=== PATIENT | male | born 1975 | race Caucasian/White ===

== ENCOUNTER 2018-02-16 21:48 | Inpatient (IN) ==
[2018-02-17] MEDS ORDERED: 0.9 % Sodium Chloride 1,000 ML IVC ONE (00:21)
--- NOTE | 2018-02-17 00:21 | Event Note ---
Date of Encounter: 02/17/18 Time of Encounter: 00:11 Patient was seen and examined. I agree with the Resident Physician's note as written. Briefly, patient is 42 M PMH chronic lymphedema who used to follow up in a lymphedema clinic but stopped, DM diet controlled who presented to [facility] with left LE swelling, tenderness and fever. This started at 11 am. Patient recently had a dog scratch his left lower ext. 3 weeks ago he had celulitis on the right lower ext treated with bactrim with complete resolution. At [facility], he was hypotensive, tachycardic. labs showed leukocytosis, lactic acidosis which resolved with IVF. Phosphorous was <1.0, mag 1.5, k 3.6. He was given IV fluids , vanco/zosyn and sent here. Patient is hypotensive here with BP 92/63 and remains tachycardic. He is afebrile but diaphoretic A/O x3 Tachycardic, S1, S2, no m/r/g CTAB Obese, NT, ND, +BS Chronic lymphedema of b/l LE extremities. Left LE with erythema and tenderness to palpation from the ankles to the knee. 2+ DP Nonfocal neuro exam Will admit Will bolus 1 L NS stat Maintenance fluids after that with NS at 125 cc/hr vanco/zosyn apolinar the area CT LE if fails to improve Left LE doppler to rule out DVT f/u on blood cutltures repeat labs in am Give potassium phos IV
[2018-02-17] MEDS ORDERED: Naloxone 0.4 MG/ML INJ IVP PRN (00:31)
--- NOTE | 2018-02-17 00:31 | Internal Med History&Physical ---
Date of Encounter: 02/17/18 Time of Encounter: 12:30 Internal Medicine - H&P: HPI Chief complaint: Swelling of left leg Admitted From: Intrahospital Transfer Plans for Post Hospital Care: Home History of present illness: Mr. Overton is a 42 year old male diabetes chronic lymphedema, recurrent cellulitis, diet-controlled, gastric bypass 6 years ago presents to [facility] with left lower extremity swelling for 1 day. The patient reports that the swelling started this a.m. and he became febrile and had chills. He reports that he had a dog scratch on his left lower extremity 3 weeks ago, but swelling and fever/ chills did not start until today. Aleve helps with the fever, but lower extremity pain remains 6 out of 10. Patient is a chronic smoker of 25+ pack years, denies alcohol or illicit drug use. He also admits to a dry cough without sputum 2 days. reports that his dog has been tested for rabies. Admits to bleeding from left lower extremity wounds. Denies purulent discharge. Has additional right lower extremity wounds from several weeks ago as he was trying to get out of his truck. Denies antibiotic use this year prior to this visit. Although the patient informs me that he has recurrent lower extremity cellulitis , his last admission for cellulitis was 6+ years ago. He denies visual changes , chest pain, nausea, vomiting, diarrhea, abdominal pain, constipation, symptoms. Cannot recall any further wounds the size mentioned above. Past Med Surg Social Fam HX - Past Medical History Medical history: diabetes, hypertension, other Psychiatric history: no psych history - Social History Smoking Status: Current every day smoker Smokeless Tobacco Status: No Alcohol use: occasionally Drug use: none Internal Medicine - H&P: Meds Albuterol Sulfate [Albuterol Inhaler] 2 puff IH Q6HR PRN #1 [email or web address] 10/16/16 [Rx] Cholecalciferol (D-3) [Vitamin D] 1,000 unit PO DAILY 10/16/16 [History] Furosemide [Lasix] 40 mg PO DAILY 10/16/16 [History] Gabapentin [Neurontin] 300 mg PO TID 10/16/16 [History] HydrOXYzine [HydrOXYzine] 50 mg PO QID PRN 10/16/16 [History] Ibuprofen [Motrin] 800 mg PO TID 10/16/16 [History] Paroxetine HCl [Paxil] 20 mg PO DAILY 10/16/16 [History] Potassium Chloride [K-Tab ER] 10 meq PO BID 10/16/16 [History] 3 Allergy/AdvReac Type Severity Reaction Status Date / Time No Known Allergies Allergy Verified 02/16/18 17:34 All Systems PM: A 10-system review of systems was performed and is negative for pertinent findings except as documented above in the HPI. - Constitutional Constitutional: chills, fever(s), no night sweats - EENT Eyes: no change in vision, no discharge, no pain, no photophobia Ears: no ear discharge, no ear pain, no tinnitus Nose, mouth and throat: no dysphagia, no nasal discharge, no neck pain, no sore throat - Cardiovascular Cardiovascular ROS IM: no chest pain, no diaphoresis, no dyspnea, no lightheadedness, no palpitations, no syncope - Respiratory Respiratory: cough, no dyspnea, no wheezing, no excessive phlegm production - Gastrointestinal Gastrointestinal: no abdominal pain, no diarrhea, no hematemesis, no hematochezia, no melena, no nausea, no vomiting - Musculoskeletal Musculoskeletal ROS IM: no numbness, no tingling - Integumentary Integumentary IM: non-healing lesions, no rash, no unusual bruising - Neurological Neurological ROS: no confusion, no convulsions, no focal weakness, no numbness, no tingling, no tremor(s) - Hematologic/Lymphatic Hematologic/Lymphatic: no easy bruising - Constitutional Vitals: Temp Pulse Resp BP Pulse Ox 98.4 F 112 14 92/63 94 02/16/18 23:51 02/16/18 23:51 02/16/18 23:51 02/16/18 23:51 02/16/18 23:51 General appearance: Present: A&O X 3, morbidly obese, no acute distress, answers questions appropriately - Head Head exam: Present: atraumatic, normocephalic - Eye Eye exam: Present: EOMI, conjuntiva pink, sclera anicteric - Neck Neck exam general surgery: Present: supple, trachea midline. Absent: lymphadenopathy - Respiratory Respiratory exam: Present: CTAB. Absent: accessory muscle use, rales, rhonchi, wheezes - Cardiovascular Cardiovascular exam: Present: +S1, +S2, tachycardia. Absent: diastolic murmur, gallop, rubs, systolic murmur - GI/Abdominal GI/Abdominal exam: Present: normal bowel sounds, soft, no peritoneal signs. Absent: distended, tenderness - Extremities Exam Extremities exam: Present: pedal edema, warm, radial pulses palpable and symmetrical. Absent: calf tenderness, cyanotic Additional comments: Left LE swelling approximately 30cm, no discharge of bleed, ulcerations on left lower extremity calf. Healing ulcerations on right lower extremity. - Neurological Exam Neurological exam: Present: CN II-XII intact, oriented X3, no focal deficits. Absent: pronater drift, facial droop, speech deficit - Skin Skin exam: Present: dry, intact Internal Med - H&P Results - Labs CBC & Chem 7: 02/17/18 01:25 02/17/18 01:25 - Assessment and plan (1) Sepsis Current Visit: Yes Status: Acute Assessment and plan: Pulse 100+, leukocytosis, extensive cellulitis of left lower extremity. Sepsis likely secondary to left lower extremity cellulitis Patient also reports shortness of breath with dry cough Pending chest x-ray Start vancomycin and Zosyn, pending blood cultures. De-escalate as appropriate. Start IV fluids Left LE Doppler to rule out PE in the setting of tachycardia, SOB, sedentary, pending Continous cardiac monitoring and pulse ox. Qualifiers: Sepsis type: sepsis due to unspecified organism Qualified Code(s): A41.9 - Sepsis, unspecified organism (2) Cellulitis Current Visit: No Status: Acute Assessment and plan: marked area of cellulitis. Start antibiotics IVF treat per above Qualifiers: Qualified Code(s): L03.116 - Cellulitis of left lower limb (3) DVT prophylaxis Current Visit: Yes Status: Acute Assessment and plan: SubQ heparin (4) Hypophosphatasia Current Visit: Yes Status: Acute Assessment and plan: Potassium phosphate infusion recheck am labs (5) Hypomagnesemia Current Visit: Yes Status: Acute Assessment and plan: Magnesium sulfate. Recheck with AM labs (6) Diabetes Current Visit: Yes Status: Acute Assessment and plan: Patient reports diabetes is diet-controlled after his gastric bypass 6 years ago. Recheck A1c. Qualifiers: Qualified Code(s): E11.9 - Type 2 diabetes mellitus without complications - Time Spent With Patient Total time spent is greater than 50% in coordination of care (as documented) at patient's floor/unit and/or counseling patient: Greater than 35 minutes
[2018-02-17] MEDS ORDERED: Potassium Phosphate 44 MEQ in 0.9 % Sodium Chloride 250 ML IVPB ONE (00:51)
[2018-02-17] MEDS ORDERED: Vancomycin (wt based) 1,000 MG VIAL IVPB SCH (01:00)
[2018-02-17] MEDS: 0.9 % Sodium Chloride 1,000 ML IVC SCH ×2 (01:52→23:29)
[2018-02-17 01:53] LABS: Hematocrit 37.3 % (37.5-50.1); Hemoglobin 12.5 g/dL (12.9-16.9); Mean Corpuscular HGB Conc 33.5 g/dL (31.6-35.5); Mean Corpuscular Hemoglobin 29.6 pg (28.0-33.3); Mean Corpuscular Volume 88.4 fL (83.0-100.0); Mean Platelet Volume 11.1 fL (9.4-12.4); Platelet Count 138 K/mcL (140-400); Red Blood Count 4.22 M/mcL (4.19-5.50); Red Cell Distribution Width 14.4 % (11.5-14.5)
[2018-02-17] MEDS ORDERED: Dextrose Gel 15 GM/37.5 ML TUBE PO PRN ×2 (02:07)
[2018-02-17] MEDS ORDERED: D5% in Water 1,000 ML IVC PRN (02:07)
[2018-02-17] MEDS ORDERED: *HR* Dextrose 50 % in Water (Syg) 50 ML SYRINGE IVP PRN (02:07)
[2018-02-17 02:10] LABS: Lymphocytes # 0.2 K/mcL (0.6-4.6)
[2018-02-17 02:14] LABS: BUN/Creatinine Ratio 18 (6-26); Blood Urea Nitrogen 15 mg/dL (6-20); Calcium 7.8 mg/dL (8.6-10.3); Carbon Dioxide 22 mEq/L (23-29); Chloride 109 mEq/L (98-107); Chol/HDL Ratio 2.2 (0-4.9); Cholesterol 69 mg/dL (< 200); Glucose 97 mg/dL (70-105); HDL Cholesterol 31 mg/dL (40-59); LDL Cholesterol,Calculated 30 mg/dL (0-99); Osmolality,Calculated 285 (280-300); Potassium 3.9 mEq/L (3.5-5.1); Sodium 137 mEq/L (136-145); Triglycerides 40 mg/dL (< 150); eGFR For African Americans > 60 (> 60); eGFR For Non-African Americans > 60 (> 60)
[2018-02-17 02:31] LABS: Magnesium 1.7 mg/dL (1.6-2.6); Phosphorous 3.1 mg/dL (2.7-4.5)
[2018-02-17 02:39] LABS: Monocytes # 0.2 K/mcL (0.0-1.3); Neutrophils # 21.5 K/mcL (1.6-8.9); Platelet Estimate Slight Decrease (Normal)
[2018-02-17 02:40] LABS: Toxic Granulation Present (Not Present)
[2018-02-17] MEDS: *HR* Heparin 5,000 UNIT/ML VIAL SQ SCH ×2 (05:57→17:06)
[2018-02-17] MEDS: Insulin LISPRO 300 UNITS/3 ML VIAL SQ SCH ×4 (08:12→22:01)
[2018-02-17] MEDS: Piperacillin/Tazobactam 3.375 GM in 0.9 % Sodium Chloride Mini Bag 100 ML IVPB SCH ×3 (08:29→23:28)
[2018-02-17] MEDS: Acetaminophen 325 MG TABLET PO PRN (09:15)
[2018-02-17] MEDS: *HR* HYDROcodone/Acet 7.5/325 mg TABLET PO PRN (10:56)
[2018-02-17] MEDS: *HR* Nalbuphine 10 MG/ML AMPUL IV PRN ×2 (17:13→22:01)
[2018-02-17] MEDS ORDERED: 0.9 % Sodium Chloride 1,000 ML ONE (22:12)
[2018-02-18] MEDS: *HR* Heparin 5,000 UNIT/ML VIAL SQ SCH ×2 (05:50→18:24)
[2018-02-18] MEDS: *HR* Nalbuphine 10 MG/ML AMPUL IV PRN ×3 (05:50→18:46)
[2018-02-18] MEDS: Insulin LISPRO 300 UNITS/3 ML VIAL SQ SCH ×4 (08:15→22:09)
[2018-02-18] MEDS: Piperacillin/Tazobactam 3.375 GM in 0.9 % Sodium Chloride Mini Bag 100 ML IVPB SCH ×2 (08:25→15:15)
--- NOTE | 2018-02-18 22:00 | Internal Med Progress Note ---
Date of Encounter: 02/18/18 Time of Encounter: 17:00 - Assessment and plan (1) Sepsis, unspecified organism Status: Acute Assessment and plan: His sepsis is due to cellulitis of of left lower leg. Lactic acid is 0.7. Will keep him on IV vancomycin and IV Zosyn. Qualifiers: Sepsis type: sepsis due to unspecified organism Qualified Code(s): A41.9 - Sepsis, unspecified organism (2) Cellulitis of left leg Status: Acute Assessment and plan: He has chronic lymphedema. He had similar cellulitis several months ago. Treatment with IV vancomycin and IV Zosyn. (3) Chronic acquired lymphedema Status: Acute Assessment and plan: Chronic problem. It is severe in intensity. (4) T2DM (type 2 diabetes mellitus) Status: Acute Assessment and plan: Will continue to diabetic diet. Will continue prn Humalog. Qualifiers: Diabetes mellitus retirement insulin use: without termite control servicer use Diabetes mellitus complication status: without complication Qualified Code(s): E11.9 - Type 2 diabetes mellitus without complications - Time Spent With Patient Total time spent is greater than 50% in coordination of care (as documented) at patient's floor/unit and/or counseling patient: 25 - 35 minutes - Subjective Interval history: The patient complains of pain in the area of left lower leg. He gets prn IV nubain to control it. Denies chest pain. Denies difficulty breathing. Denies coughing and wheezing. - Constitutional Vitals: Temp Pulse Resp BP Pulse Ox 99.1 F 85 16 119/56 98 02/18/18 18:48 02/18/18 18:48 02/18/18 18:48 02/18/18 18:48 02/18/18 18:48 General appearance: Present: A&O X 3, morbidly obese, no acute distress, answers questions appropriately - Respiratory Respiratory exam: Present: CTAB. Absent: accessory muscle use, rales, rhonchi, wheezes - Cardiovascular Cardiovascular exam: Present: RRR, +S1, +S2. Absent: diastolic murmur, gallop, rubs, systolic murmur - GI/Abdominal GI/Abdominal exam: Present: normal bowel sounds, soft, no peritoneal signs. Absent: distended, tenderness - Skin Skin exam: Present: dry, intact Additional comments: The patient has severe lymphedema of both lower legs. There is mild/moderate swelling of skin in the area of left lower leg. It's associated with intense reddish/brownish discoloration. Internal Medicine: Result - Labs CBC & Chem 7: 02/26/18 02:15 02/26/18 02:15 Consult Discharge Plan - Plan Additional Instructions: Follow up with PCP in 2-3 days after discharge. Recheck BMP and CBC at that time. Follow up in lymphedema clinic as directed. Referrals: Forrest Lozano DO [Primary Care Provider] - 03/01/18 10:30 am Prescriptions: Clotrimazole 1% CRM [Lotrimin 1%] 1 appl TP BID #1 tube Doxycycline 100 mg PO Q12H 4 Days #8 capsule levoFLOXacin [Levaquin] 750 mg PO DAILY 4 Days #4 tablet
[2018-02-18] MEDS: *HR* HYDROcodone/Acet 7.5/325 mg TABLET PO PRN (22:44)
[2018-02-19] MEDS: Cefepime HCl 1,000 MG in Water for inj. (sterile) 20 ML 10 ML IVP SCH ×4 (01:00→23:18)
[2018-02-19] MEDS: Ketorolac 30 MG/ML VIAL IVP SCH ×5 (01:00→23:18)
[2018-02-19] MEDS: *HR* Nalbuphine 10 MG/ML AMPUL IV PRN ×3 (01:01→20:58)
[2018-02-19] MEDS: *HR* Heparin 5,000 UNIT/ML VIAL SQ SCH ×2 (06:43→17:29)
[2018-02-19] MEDS: Insulin LISPRO 300 UNITS/3 ML VIAL SQ SCH ×4 (07:28→20:14)
[2018-02-19] MEDS: *HR* HYDROcodone/Acet 7.5/325 mg TABLET PO PRN ×2 (08:02→15:16)
[2018-02-19] MEDS: Benzonatate 100 MG CAPSULE PO PRN (12:03)
--- NOTE | 2018-02-19 23:17 | Internal Med Progress Note ---
Date of Encounter: 02/19/18 Time of Encounter: 19:00 - Assessment and plan (1) Sepsis, unspecified organism Status: Acute Assessment and plan: Blood cultures are not growing any bacteria. Will continue IV vancomycin. Will substitute Zosyn with IV cefepime. Will consult infectious diseases in the morning. Qualifiers: Sepsis type: sepsis due to unspecified organism Qualified Code(s): A41.9 - Sepsis, unspecified organism (2) Cellulitis of left leg Status: Acute Assessment and plan: See above. (3) Chronic acquired lymphedema Status: Acute Assessment and plan: Chronic problem. (4) T2DM (type 2 diabetes mellitus) Status: Acute Assessment and plan: Under federal control. Will continue to diabetic diet and prn HumaLog. Qualifiers: Diabetes mellitus halfway insulin use: without halfway use Diabetes mellitus complication status: without complication Qualified Code(s): E11.9 - Type 2 diabetes mellitus without complications - Time Spent With Patient Total time spent is greater than 50% in coordination of care (as documented) at patient's floor/unit and/or counseling patient: 25 - 35 minutes - Subjective Interval history: He continues to have mild/moderate swelling on top of chronic lymphoedema in the left lower leg. There is a little bit red streaking behind his left thigh. The pain is under control with the IV nubain.Denies chest pain. Denies difficulty breathing. He has no coughing or wheezing. - Constitutional Vitals: Temp Pulse Resp BP Pulse Ox 98.8 F 75 18 110/69 96 02/19/18 22:57 02/19/18 22:57 02/19/18 22:57 02/19/18 22:57 02/19/18 22:57 General appearance: Present: A&O X 3, morbidly obese, no acute distress, answers questions appropriately - Respiratory Respiratory exam: Present: CTAB. Absent: accessory muscle use, rales, rhonchi, wheezes - Cardiovascular Cardiovascular exam: Present: RRR, +S1, +S2. Absent: diastolic murmur, gallop, rubs, systolic murmur - GI/Abdominal GI/Abdominal exam: Present: normal bowel sounds, soft, no peritoneal signs. Absent: distended, tenderness - Skin Skin exam: Present: dry, intact Additional comments: Both her legs showing, moderate/severe lymphoedema. There is intense reddish/ brownish discoloration of the skin on top of left lower leg. He is associated with mild/moderate swelling. Internal Medicine: Result - Labs CBC & Chem 7: 02/26/18 02:15 02/26/18 02:15 Consult Discharge Plan - Plan Additional Instructions: Follow up with PCP in 2-3 days after discharge. Recheck BMP and CBC at that time. Follow up in lymphedema clinic as directed. Referrals: Forrest Lozano DO [Primary Care Provider] - 03/01/18 10:30 am Prescriptions: Clotrimazole 1% CRM [Lotrimin 1%] 1 appl TP BID #1 tube Doxycycline 100 mg PO Q12H 4 Days #8 capsule levoFLOXacin [Levaquin] 750 mg PO DAILY 4 Days #4 tablet
[2018-02-20] MEDS: *HR* Nalbuphine 10 MG/ML AMPUL IV PRN ×5 (01:04→21:17)
[2018-02-20 01:45] LABS: Hematocrit 32.7 % (37.5-50.1); Mean Corpuscular HGB Conc 33.6 g/dL (31.6-35.5); Mean Corpuscular Hemoglobin 29.8 pg (28.0-33.3); Mean Corpuscular Volume 88.6 fL (83.0-100.0); Mean Platelet Volume 10.5 fL (9.4-12.4); Platelet Count 152 K/mcL (140-400); Red Blood Count 3.69 M/mcL (4.19-5.50); Red Cell Distribution Width 14.6 % (11.5-14.5)
[2018-02-20 02:09] LABS: BUN/Creatinine Ratio 23 (6-26); Blood Urea Nitrogen 16 mg/dL (6-20); Calcium 8.2 mg/dL (8.6-10.3); Carbon Dioxide 23 mEq/L (23-29); Chloride 106 mEq/L (98-107); Glucose 191 mg/dL (70-105); Osmolality,Calculated 286 (280-300); Potassium 3.7 mEq/L (3.5-5.1); Sodium 135 mEq/L (136-145); eGFR For African Americans > 60 (> 60); eGFR For Non-African Americans > 60 (> 60)
[2018-02-20] MEDS: Ketorolac 30 MG/ML VIAL IVP SCH ×4 (05:12→23:59)
[2018-02-20] MEDS: *HR* Heparin 5,000 UNIT/ML VIAL SQ SCH ×2 (05:12→17:11)
[2018-02-20] MEDS: Insulin LISPRO 300 UNITS/3 ML VIAL SQ SCH ×4 (09:00→20:46)
[2018-02-20] MEDS: Cefepime HCl 1,000 MG in Water for inj. (sterile) 20 ML 10 ML IVP SCH ×2 (09:11→17:10)
[2018-02-20 09:19] LABS: Estimated Average Glucose 126 mg/dl
--- NOTE | 2018-02-20 09:34 | Internal Med Progress Note ---
Date of Encounter: 02/20/18 Time of Encounter: 09:32 - Assessment and plan (1) Cellulitis Current Visit: Yes Status: Acute Assessment and plan: LLE improving from marked area. Continue IV vancomycin and IV cefepime. Continue toradol and nubain for pain control. Qualifiers: Site of cellulitis: extremity Site of cellulitis of extremity: lower extremity Laterality: left Qualified Code(s): L03.116 - Cellulitis of left lower limb (2) Sepsis Current Visit: Yes Status: Resolved Assessment and plan: Resolved. Continue to monitor. Qualifiers: Sepsis type: sepsis due to unspecified organism Qualified Code(s): A41.9 - Sepsis, unspecified organism (3) Hypomagnesemia Current Visit: Yes Status: Resolved Assessment and plan: Resolved. (4) Diabetes Current Visit: Yes Status: Acute Assessment and plan: Continue diabetic diet. Continue accuchecks and SSI QID AC/HS. Qualifiers: Diabetes mellitus type: type 2 Diabetes mellitus ferry terminal agent insulin use: without snf use Diabetes mellitus complication status: without complication Qualified Code(s): E11.9 - Type 2 diabetes mellitus without complications (5) DVT prophylaxis Current Visit: Yes Status: Acute Assessment and plan: Continue SQ heparin. - Time Spent With Patient Total time spent is greater than 50% in coordination of care (as documented) at patient's floor/unit and/or counseling patient: less than 15 minutes - Subjective Interval history: Patient had no acute events overnight. Nursing staff reports that patient's LLE looks improved. Upon my inspection, erythema improved from previous markings. Patient states that he thinks its getting better, too. He states toradal and nubain are good for pain control. He has no other complaints at this time. - Constitutional Vitals: Temp Pulse Resp BP Pulse Ox 98.5 F 74 16 107/69 97 02/20/18 06:46 02/20/18 06:46 02/20/18 06:46 02/20/18 06:46 02/20/18 06:46 General appearance: Present: cooperative, A&O X 3, morbidly obese, no acute distress, answers questions appropriately - Respiratory Respiratory exam: Present: CTAB. Absent: accessory muscle use, rales, rhonchi, wheezes Additional comments: Normal WOB - Cardiovascular Cardiovascular exam: Present: RRR, +S1, +S2. Absent: diastolic murmur, gallop, rubs, systolic murmur Additional comments: 3+ LLE edema, 2+ RLE edema - GI/Abdominal GI/Abdominal exam: Present: normal bowel sounds, soft. Absent: distended, hepatomegaly, mass, splenomegaly, tenderness - Psychiatric Psychiatric exam: Present: normal affect, normal mood. Absent: agitated, anxious, depressed - Skin Skin exam: Present: dry, intact, warm. Absent: cyanosis Additional comments: Significant erythema, warmth, and edema of LLE with mild TTP, improved from previous pen markings Internal Medicine: Result - Labs CBC & Chem 7: 02/20/18 01:34 02/20/18 01:34 Labs: Short CBC 02/20/18 Range/Units 01:34 WBC 7.0 D (4.3-11.1) K/mcL Hgb 11.0 L D (12.9-16.9) g/dL Hct 32.7 L (37.5-50.1) % Plt Count 152 (140-400) K/mcL [facility] 02/20/18 01:34 Sodium 135 L Potassium 3.7 Chloride 106 Carbon Dioxide 23 BUN 16 Creatinine 0.71 Glucose 191 H Calcium 8.2 L Consult Discharge Plan - Plan Referrals: Forrest Lozano DO [Primary Care Provider] -
[2018-02-20] MEDS: Acetaminophen 325 MG TABLET PO PRN (14:40)
[2018-02-21] MEDS: *HR* Nalbuphine 10 MG/ML AMPUL IV PRN ×5 (01:10→21:14)
[2018-02-21 01:22] LABS: Basophils % 0.4 %; Eosinophils # 0.1 K/mcL (0.0-0.6); Eosinophils % 1.2 %; Hematocrit 32.9 % (37.5-50.1); Hemoglobin 10.9 g/dL (12.9-16.9); Immature Granulocytes % 1.7 % (0-4); Lymphocytes # 1.2 K/mcL (0.6-4.6); Lymphocytes % 17.9 %; Mean Corpuscular HGB Conc 33.1 g/dL (31.6-35.5); Mean Corpuscular Hemoglobin 29.7 pg (28.0-33.3); Mean Corpuscular Volume 89.6 fL (83.0-100.0); Mean Platelet Volume 10.7 fL (9.4-12.4); Monocytes # 0.9 K/mcL (0.0-1.3); Monocytes % 12.6 %; Neutrophils # 4.6 K/mcL (1.6-8.9); Nucleated Red Blood Cells 0.3 /100 WBC (0); Platelet Count 153 K/mcL (140-400); Red Blood Count 3.67 M/mcL (4.19-5.50); Red Cell Distribution Width 14.9 % (11.5-14.5); Segmented Neutrophils % 66.2 %
[2018-02-21 01:41] LABS: BUN/Creatinine Ratio 22 (6-26); Blood Urea Nitrogen 16 mg/dL (6-20); Calcium 8.3 mg/dL (8.6-10.3); Carbon Dioxide 25 mEq/L (23-29); Chloride 104 mEq/L (98-107); Glucose 120 mg/dL (70-105); Osmolality,Calculated 282 (280-300); Potassium 4.1 mEq/L (3.5-5.1); Sodium 135 mEq/L (136-145); eGFR For African Americans > 60 (> 60); eGFR For Non-African Americans > 60 (> 60)
[2018-02-21] MEDS: Ketorolac 30 MG/ML VIAL IVP SCH ×4 (05:38→23:15)
[2018-02-21] MEDS: *HR* Heparin 5,000 UNIT/ML VIAL SQ SCH ×2 (05:39→16:47)
[2018-02-21] MEDS: *HR* HYDROcodone/Acet 7.5/325 mg TABLET PO PRN ×2 (07:40→16:07)
[2018-02-21] MEDS: Cefepime HCl 1,000 MG in Water for inj. (sterile) 20 ML 10 ML IVP SCH ×2 (07:41)
[2018-02-21] MEDS: Benzonatate 100 MG CAPSULE PO PRN (07:47)
[2018-02-21] MEDS: Insulin LISPRO 300 UNITS/3 ML VIAL SQ SCH ×4 (09:16→21:13)
--- NOTE | 2018-02-21 09:52 | Internal Med Progress Note ---
Date of Encounter: 02/21/18 Time of Encounter: 09:50 - Assessment and plan (1) Cellulitis Current Visit: Yes Status: Acute Assessment and plan: LLE continues to improve from marked area. Still with significant edema, slowly improving. Continue IV vancomycin and IV cefepime. Continue toradol and nubain for pain control. Qualifiers: Site of cellulitis: extremity Site of cellulitis of extremity: lower extremity Laterality: left Qualified Code(s): L03.116 - Cellulitis of left lower limb (2) Sepsis Current Visit: Yes Status: Resolved Assessment and plan: Resolved. Continue to monitor. Qualifiers: Sepsis type: sepsis due to unspecified organism Qualified Code(s): A41.9 - Sepsis, unspecified organism (3) Hypomagnesemia Current Visit: Yes Status: Resolved Assessment and plan: Resolved. (4) Diabetes Current Visit: Yes Status: Chronic Assessment and plan: Continue diabetic diet. Continue accuchecks and SSI QID AC/HS. Qualifiers: Diabetes mellitus type: type 2 Diabetes mellitus termite renewal inspector insulin use: without termite renewal inspector use Diabetes mellitus complication status: without complication Qualified Code(s): E11.9 - Type 2 diabetes mellitus without complications (5) DVT prophylaxis Current Visit: Yes Status: Acute Assessment and plan: Continue SQ heparin. - Time Spent With Patient Total time spent is greater than 50% in coordination of care (as documented) at patient's floor/unit and/or counseling patient: less than 15 minutes - Subjective Interval history: Patient had no acute events overnight. Patient states erythema of LLE better, but still with considerable edema and pain. He denies chest pain, SOB, fever, chills, nausea, vomiting, or abdominal pain. He has no other complaints at this time. - Constitutional Vitals: Temp Pulse Resp BP Pulse Ox 97.7 F 69 19 93/59 93 02/21/18 07:56 02/21/18 07:56 02/21/18 07:56 02/21/18 07:56 02/21/18 07:56 General appearance: Present: cooperative, A&O X 3, morbidly obese, pleasant, no acute distress, answers questions appropriately - Respiratory Respiratory exam: Present: CTAB. Absent: accessory muscle use, rales, rhonchi, wheezes Additional comments: Normal WOB - Cardiovascular Cardiovascular exam: Present: RRR, +S1, +S2. Absent: diastolic murmur, gallop, rubs, systolic murmur Additional comments: 3+ LLE edema, 1+ RLE edema - GI/Abdominal GI/Abdominal exam: Present: normal bowel sounds, soft. Absent: distended, hepatomegaly, mass, splenomegaly, tenderness - Psychiatric Psychiatric exam: Present: normal affect, normal mood. Absent: agitated, anxious, depressed - Skin Skin exam: Present: dry, intact, warm. Absent: cyanosis Additional comments: Improving moderate erythema and warmth of LLE with significant edema and mild TTP, no drainage or skin tear Internal Medicine: Result - Labs CBC & Chem 7: 02/21/18 01:05 02/21/18 01:05 Labs: Short CBC 02/21/18 Range/Units 01:05 WBC 6.9 (4.3-11.1) K/mcL Hgb 10.9 L (12.9-16.9) g/dL Hct 32.9 L (37.5-50.1) % Plt Count 153 (140-400) K/mcL Neutrophils # 4.6 (1.6-8.9) K/mcL BMP 02/21/18 01:05 Sodium 135 L Potassium 4.1 Chloride 104 Carbon Dioxide 25 BUN 16 Creatinine 0.72 Glucose 120 H Calcium 8.3 L Consult Discharge Plan - Plan Referrals: Forrest Lozano DO [Primary Care Provider] -
--- NOTE | 2018-02-21 14:17 | Infectious Disease Consult ---
Date of Encounter: 02/21/18 Time of Encounter: 14:11 Assessment and Plan (1) Sepsis Status: Resolved Assessment and plan: Severe sepsis: The patient had three SIRS criteria plus lactic acidosis on admission. Likely secondary to LLE cellulitis. Improved. WBC has normalized. Afebrile x 48 hours. Tachycardia resolved. Lactic acid normalized. Blood cultures drawn 02/16/18 are negative x 2 sets. Qualifiers: Sepsis type: sepsis due to unspecified organism Qualified Code(s): A41.9 - Sepsis, unspecified organism (2) Cellulitis of left leg Status: Acute Assessment and plan: Location: Lower left leg. Causative organism unclear. Non-purulent. Etiology unclear, but the patient does report a possible dog scratch last week. He also has a chronic ulcer scabbed ulcer to the LLE, but clinically it does not appear infected. Clinically, it appears the cellulitis has improved based on previous skin markings. Continue Vancomycin IV. Pharmacy to dose. Goal trough ~15. Discontinue Cefepime. Start Levaquin 750mg IV daily. Duration of treatment depends on the clinical picture, but likely a total of 14 days. May consider switching to PO antibiotics when ready for discharge. Monitor renal function and for drug toxicity and dose-adjust antibiotics. Recommend referral to the lymphedema clinic on discharge. Discussed with the patient means to help prevent recurrent cellulitis: compression stockings/dressings, ensuring skin is moisturized to help diminish skin breakdown with swelling, keeping feet clean/dry, avoiding traumatic injuries, etc. (3) Lactic acidosis Status: Acute Assessment and plan: Likely secondary to sepsis. Resolved. (4) Morbid obesity with BMI of 60.0-69.9, adult Status: Acute (5) Diabetes Status: Chronic Assessment and plan: Diet-controlled since weight loss from gastric bypass surgery. HgbA1C 6.0%. Recommend aggressive glucose monitoring and control to promote healing and prevent re-infection. Management per the primary team. Qualifiers: Diabetes mellitus type: type 2 Diabetes mellitus correction insulin use: without correction use Diabetes mellitus complication status: without complication Qualified Code(s): E11.9 - Type 2 diabetes mellitus without complications (6) Chronic acquired lymphedema Status: Acute Assessment and plan: Recommend referral to lymphedema clinic on discharge. (7) Tinea pedis Status: Acute Assessment and plan: Location: Right foot. Apply Lamisil 1% to the affected area BID x 7 days. Advised the patient to keep feet clean and dry and change socks frequently. Qualifiers: Laterality: right Qualified Code(s): B35.3 - Tinea pedis Infectious Disease HPI - Data of Consult Patient: new to practice Consult date: 02/21/18 Requesting Physician: Sreekanth Jorge Primary Care Provider: Forrest Lozano DO - Consult Narrative Reason for consult: LLE cellulitis History of present illness: Mr. Overton is a 42 year old male with a past medical history of morbid obesity , diabetes, hypertension, lymphedema in the bilateral lower extremities, and recurrent cellulitis. The patient was noted to the hospital February 16 for left lower extremity cellulitis. We are consult in February 21 for further recommendations regarding left lower extremity cellulitis. The patient is a 42-year-old male with past medical history as stated above. The patient reports that last Monday he began to feel fatigued and malaise and was having some left lateral lymph node tenderness. He reports headache, neck pain, and left shoulder pain. He states he started having chills and rigors and fevers and eventually developed severe swelling and erythema and pain in the left lower extremity. He presented to the emergency department done at [facility] and was noted to be febrile and tachycardic and had leukocytosis with bandemia and lactic acidosis. Blood cultures were obtained 2 sets and are negative. He was started on IV vancomycin and Zosyn and transferred here for further evaluation. Since admission, the patient has remained hemodynamically stable. His leukocytosis has resolved. Lactic acid and white blood cell count have normalized. He had a chest x-ray on February 17 that showed pulmonary vascular congestion with a possible perihilar edema. He had an additional blood culture drawn on February 17 that is no growth to date. Venous Doppler studies of bilateral lower extremity were negative for DVT. He was started in IV Vanco and cefepime. We have been asked to evaluate and make further recommendations. During my exam today, the patient endorses the history as stated above. He states that overall he feels better. He has not had a fever for several days. Despite not having measurable fevers, he continued to have night sweats and chills, but he has not had any of those for a couple of days now. He denies any congestion, earache, or sore throat. He denies any chest pain, shortness of breath, or cough. He did report some shortness of breath upon arrival here, but that has resolved. He denies any nausea, vomiting, diarrhea, or constipation. He states had a bowel movement yesterday. He states appetite has been good. He denies any oral thrush or new skin lesions. He states he has chronic lymphedema and has been diagnosed with that about 20 years ago. He states that normally he has problems with the right lower extremity and requires constant compression stockings to the right lower extremity, but can keep the left lower extremity under control by simply elevating the extremity. He reports that he had a dog scratch to his left lower extremity last week. He does have a chronic scabbed lesion to the lateral aspect of the left ankle that does not appear acutely infected. About a month ago he was treated with a ten- day course of by mouth Bactrim for right lower extremity cellulitis. He states that since August he has had 6 or 7 episodes of recurrent cellulitis, typically in the right lower extremity, but this is the first time he has required hospitalization. The patient lives at home with his fiancee and daughter. He has 7 dogs at home. He reports he smokes a half pack of cigarettes per day, but denies any alcohol or illicit drug use. He does not work outside the home. He denies any recent travel outside the [facility]. CC: Sreekanth Jorge Past Med Surg Social Fam HX - Past Medical History Attestation: Yes The following information was validated with the patient. Source: patient, old records reviewed, nursing notes reviewed Medical history: diabetes (Diet-controlled since gastric bypass surgery), hypertension, other Additional medical history: lymph edema bilat legs, recurrent cellulitits, Psychiatric history: no psych history - Past Surgical History Additional surgical history: gastric bypass sx, open bone biopsy to right leg, - Social History Smoking Status: Current every day smoker Packs per day: 1 Smokeless Tobacco Status: No Alcohol use: occasionally Drug use: none Occupational status: disabled Current living situation: Home, With Family Activity Level: Independent ambulation Recent Out of Country Travel Within the Last 8 Weeks: No Exposure or Possible Exposure to Illness During Travel: No Infectious Disease-CN:Meds Albuterol Sulfate [Albuterol Inhaler] 2 puff IH Q6HR PRN #1 [email or web address] 10/16/16 [Rx] Cholecalciferol (D-3) [Vitamin D] 1,000 unit PO DAILY 10/16/16 [History] Furosemide [Lasix] 40 mg PO DAILY 10/16/16 [History] Gabapentin [Neurontin] 300 mg PO TID 10/16/16 [History] HydrOXYzine [HydrOXYzine] 50 mg PO QID PRN 10/16/16 [History] Ibuprofen [Motrin] 800 mg PO TID 10/16/16 [History] Paroxetine HCl [Paxil] 20 mg PO DAILY 10/16/16 [History] Potassium Chloride [K-Tab ER] 10 meq PO DAILY 10/16/16 [History] 3 Allergy/AdvReac Type Severity Reaction Status Date / Time No Known Allergies Allergy Verified 02/17/18 09:56 Exam - Constitutional Vitals: Temp Pulse Resp BP Pulse Ox 97.6 F 70 17 120/73 96 02/21/18 11:41 02/21/18 11:41 02/21/18 11:41 02/21/18 11:41 02/21/18 11:41 General appearance: cooperative, morbidly obese, no acute distress - Head Head exam: Present: atraumatic, normal inspection, normocephalic - Eye Eye exam: Present: EOMI, normal appearance, PERRL Pupils: Present: normal accommodation - ENT ENT exam: Present: mucous membranes moist - Neck Neck exam: Present: normal inspection - Respiratory Respiratory exam: Present: CTAB. Absent: rales, respiratory distress, rhonchi, wheezes - Cardiovascular Cardiovascular exam: Present: RRR, +S1, +S2 - GI/Abdominal GI/Abdominal exam: Present: distended (obese), normal bowel sounds, soft. Absent: tenderness - Extremities Exam Extremities exam: Present: pedal edema (LLE 4+), tenderness (lower left leg). Absent: joint swelling Additional comments: Erythema, edema, warmth, and tenderness noted to the lower portion of the LLE from ankle up to knee. Receded from previous skin markings. Scabbed lesion noted to the lateral left ankle without purulence or fluctuance. RLE with three superficial scabbed lesions noted without erythema, warmth, drainage, or fluctuance. Fozia pedis noted to the right foot. - Neurological Exam Neurological exam: Present: alert, oriented X3, no focal deficits - Psychiatric Psychiatric exam: Present: normal affect, normal mood - Skin Skin exam: Present: dry, intact, normal color, warm Infectious Disease CN: Results - Labs CBC & Chem 7: 02/21/18 01:05 02/21/18 01:05 Cultures: Cultures 02/17/18 01:25 Blood Culture - Preliminary Peripheral Venipuncture No growth. Consult Discharge Plan - Plan Referrals: Forrest Lozano, [Primary Care Provider] - - Attending Attestation I examined this patient and my medical decision-making was reviewed with the Resident Physician. I agree with the documented findings, disposition and treatment plan as described except to the extent set forth below. This is an addendum to original report dictated by Jeanne Lopes CNP. Please refer to Maya note for full detail. Patient is a 42-year-old gentleman with past medical history mentioned below including bilateral lymphedema and morbid obesity came in with cellulitis of the left lower extremity. Cellulitis was nonpurulent and organism identified. Patient was started on broad-spectrum antibiotics with vancomycin and cefepime and started doing much better clinically. Cellulitis has not fully resolved yet but apparently it has improved. Patient also was septic on admission and the sepsis has resolved. Blood cultures were obtained and were negative. Patient had lower extremity Doppler to rule out DVT and it was negative. Next Assessment and plan: Sepsis secondary to cellulitis Cellulitis of the left leg - causative organism unclear nonpurulent Bilateral lymphedema Morbid obesity Lactic acidosis Tenia pedis Recommendation: Continue vancomycin with goal vancomycin trough 10-15 for skin and soft tissue infection May DC cefepime start by mouth levofloxacin Start Lamisil topical was tenia pedis On discharge we will likely switch the patient to combination of doxycycline and oral levofloxacin to finish 10-14 day course. All of this is dependent on the clinical picture and making sure the patient does well clinically.
[2018-02-21] MEDS: Clotrimazole 1% CRM 15 GM TUBE TP SCH ×2 (16:01→21:14)
[2018-02-21] MEDS: Levofloxacin 750 MG/150 ML 750 MG/150 ML BAG IVPB SCH (16:07)
[2018-02-21] MEDS ORDERED: Isovue-370 500 ML INFUS..BTL IV ONE (18:48)
[2018-02-22] MEDS: *HR* Nalbuphine 10 MG/ML AMPUL IV PRN ×4 (01:17→20:29)
[2018-02-22 01:47] LABS: Basophils # 0.1 K/mcL (0.0-0.2); Basophils % 0.6 %; Eosinophils # 0.1 K/mcL (0.0-0.6); Eosinophils % 0.9 %; Hematocrit 33.2 % (37.5-50.1); Hemoglobin 10.8 g/dL (12.9-16.9); Immature Granulocytes % 2.5 % (0-4); Lymphocytes # 1.7 K/mcL (0.6-4.6); Lymphocytes % 15.3 %; Mean Corpuscular HGB Conc 32.5 g/dL (31.6-35.5); Mean Corpuscular Hemoglobin 28.5 pg (28.0-33.3); Mean Corpuscular Volume 87.6 fL (83.0-100.0); Mean Platelet Volume 10.3 fL (9.4-12.4); Monocytes # 1.1 K/mcL (0.0-1.3); Monocytes % 10.2 %; Neutrophils # 7.6 K/mcL (1.6-8.9); Platelet Count 185 K/mcL (140-400); Red Blood Count 3.79 M/mcL (4.19-5.50); Red Cell Distribution Width 14.8 % (11.5-14.5); Segmented Neutrophils % 70.5 %
[2018-02-22 02:08] LABS: BUN/Creatinine Ratio 23 (6-26); Blood Urea Nitrogen 15 mg/dL (6-20); Calcium 8.7 mg/dL (8.6-10.3); Carbon Dioxide 26 mEq/L (23-29); Chloride 103 mEq/L (98-107); Glucose 95 mg/dL (70-105); Osmolality,Calculated 283 (280-300); Potassium 3.9 mEq/L (3.5-5.1); Sodium 136 mEq/L (136-145); eGFR For African Americans > 60 (> 60); eGFR For Non-African Americans > 60 (> 60)
[2018-02-22] MEDS: *HR* HYDROcodone/Acet 7.5/325 mg TABLET PO PRN ×2 (02:35→04:30)
[2018-02-22] MEDS: *HR* Heparin 5,000 UNIT/ML VIAL SQ SCH ×2 (06:12→17:48)
[2018-02-22] MEDS: Ketorolac 30 MG/ML VIAL IVP SCH ×4 (06:13→23:24)
[2018-02-22] MEDS: Insulin LISPRO 300 UNITS/3 ML VIAL SQ SCH ×4 (08:02→20:42)
[2018-02-22] MEDS: Levofloxacin 750 MG/150 ML 750 MG/150 ML BAG IVPB SCH (09:16)
[2018-02-22] MEDS: Clotrimazole 1% CRM 15 GM TUBE TP SCH ×2 (09:27→20:42)
--- NOTE | 2018-02-22 09:58 | Internal Med Progress Note ---
Date of Encounter: 02/22/18 Time of Encounter: 09:55 - Assessment and plan (1) Cellulitis Current Visit: Yes Status: Acute Assessment and plan: LLE continues to improve from marked area. ID consulted; appreciate input. Erythema and edema improving. Continue IV vancomycin and IV levaquin. Continue toradol and nubain for pain control. Qualifiers: Site of cellulitis: extremity Site of cellulitis of extremity: lower extremity Laterality: left Qualified Code(s): L03.116 - Cellulitis of left lower limb (2) Sepsis Current Visit: Yes Status: Resolved Assessment and plan: Resolved. Continue to monitor. Qualifiers: Sepsis type: sepsis due to unspecified organism Qualified Code(s): A41.9 - Sepsis, unspecified organism (3) Hypomagnesemia Current Visit: Yes Status: Resolved Assessment and plan: Resolved. (4) Diabetes Current Visit: Yes Status: Chronic Assessment and plan: Continue diabetic diet. Continue accuchecks and SSI QID AC/HS. 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 - Time Spent With Patient Total time spent is greater than 50% in coordination of care (as documented) at patient's floor/unit and/or counseling patient: less than 15 minutes - Subjective Interval history: Patient had no acute events overnight. Patient states erythema and edema of LLE better, but still with moderate pain. He denies chest pain, SOB, fever, chills, nausea, vomiting, or abdominal pain. He has no other complaints at this time. - Constitutional Vitals: Temp Pulse Resp BP Pulse Ox 97.7 F 67 18 115/78 93 02/22/18 06:49 02/22/18 06:49 02/22/18 06:49 02/22/18 06:49 02/22/18 06:49 General appearance: Present: cooperative, A&O X 3, morbidly obese, pleasant, no acute distress, answers questions appropriately - Respiratory Respiratory exam: Present: CTAB. Absent: accessory muscle use, rales, rhonchi, wheezes Additional comments: Normal WOB - Cardiovascular Cardiovascular exam: Present: RRR, +S1, +S2. Absent: diastolic murmur, gallop, rubs, systolic murmur Additional comments: 2+ L > R BLE edema - GI/Abdominal GI/Abdominal exam: Present: normal bowel sounds, soft. Absent: distended, hepatomegaly, mass, splenomegaly, tenderness - Psychiatric Psychiatric exam: Present: normal affect, normal mood. Absent: agitated, anxious, depressed - Skin Skin exam: Present: dry, intact, warm. Absent: cyanosis Additional comments: LLE erythema and edema much improved from yesterday, lymphedematous changes BLE , mild TTP LLE, no LLE drainage Internal Medicine: Result - Labs CBC & Chem 7: 02/22/18 01:29 02/22/18 01:29 Labs: Short CBC 02/22/18 Range/Units 01:29 WBC 10.8 D (4.3-11.1) K/mcL Hgb 10.8 L (12.9-16.9) g/dL Hct 33.2 L (37.5-50.1) % Plt Count 185 (140-400) K/mcL Neutrophils # 7.6 (1.6-8.9) K/mcL BMP 02/22/18 01:29 Sodium 136 Potassium 3.9 Chloride 103 Carbon Dioxide 26 BUN 15 Creatinine 0.65 L Glucose 95 Calcium 8.7 - Impressions Impressions Lower Extremity CT 02/21/18 18:48 IMPRESSION: 1. Severe diffuse subcutaneous fat stranding and skin thickening in the left leg compatible with cellulitis versus lymphedema. No drainable fluid collection. 2. No acute osseous abnormality. D/ / Freddy Gutierrez MD / Freddy Gutierrez MD Interpreting Provider: Freddy Gutiererz MD Consult Discharge Plan - Plan Referrals: Forrest Lozano DO [Primary Care Provider] -
[2018-02-22] MEDS ORDERED: Albuterol 2.5 MG/3 ML NEBULIZER IH PRN (10:43)
--- NOTE | 2018-02-22 10:45 | Infectious Disease Progress No ---
Date of Encounter: 02/22/18 Time of Encounter: 10:43 - Assessment and Plan (1) Sepsis Current Visit: Yes Status: Resolved Severe sepsis: The patient had three SIRS criteria plus lactic acidosis on admission. Likely secondary to LLE cellulitis. Improved. WBC has normalized. Afebrile x 48 hours. Tachycardia resolved. Lactic acid normalized. Blood cultures drawn 02/16/18 are negative x 2 sets. Qualifiers: Sepsis type: sepsis due to unspecified organism Qualified Code(s): A41.9 - Sepsis, unspecified organism (2) Cellulitis of left leg Current Visit: Yes Status: Acute Location: Lower left leg. Causative organism unclear. Non-purulent. Etiology unclear, but the patient does report a possible dog scratch last week. He also has a chronic ulcer scabbed ulcer to the LLE, but clinically it does not appear infected. CT of the LLE negative for abscess or underlying infectious etiology. Clinically, it appears the cellulitis has improved based on previous skin markings. Continue Vancomycin IV. Pharmacy to dose. Goal trough ~15. Continue Levaquin 750mg IV daily. Duration of treatment depends on the clinical picture, but likely a total of 14 days. May consider switching to PO antibiotics when ready for discharge. Monitor renal function and for drug toxicity and dose-adjust antibiotics. Recommend referral to the lymphedema clinic on discharge. Discussed with the patient means to help prevent recurrent cellulitis: compression stockings/dressings, ensuring skin is moisturized to help diminish skin breakdown with swelling, keeping feet clean/dry, avoiding traumatic injuries, etc. (3) Lactic acidosis Current Visit: Yes Status: Acute Likely secondary to sepsis. Resolved. (4) Morbid obesity with BMI of 60.0-69.9, adult Current Visit: Yes Status: Acute (5) Diabetes Current Visit: Yes Status: Chronic Diet-controlled since weight loss from gastric bypass surgery. HgbA1C 6.0%. Recommend aggressive glucose monitoring and control to promote healing and prevent re-infection. Management per the primary team. 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 (7) Tinea pedis Current Visit: Yes Status: Acute Location: Right foot. Apply Lamisil 1% to the affected area BID x 7 days (day 2). Advised the patient to keep feet clean and dry and change socks frequently. Qualifiers: Laterality: right Qualified Code(s): B35.3 - Tinea pedis - Subjective Interval history: Patient seen and examined. No acute events noted overnight. Patient states pain increased this morning due to not receiving pain medication overnight. Denies fevers, but states he got very hot overnight. Denies chills or rigors. Denies chest pain, shortness of breath, or cough. Denies nausea, vomiting, or diarrhea. Denies abdominal pain, urinary complaints, or appetite changes. States last BM was Monday. Denies oral thrush or skin lesions. States his leg might be a little better this morning. Infect Dis PN-Objective Data - Labs CBC & Chem 7: 02/22/18 01:29 02/22/18 01:29 Labs: Laboratory Results - last 24 hr 02/21/18 02/21/18 02/21/18 16:45 17:42 20:44 WBC RBC Hgb Hct MCV MCH MCHC RDW Plt Count MPV Immature Gran % Seg Neutrophils % Lymphocytes % Monocytes % Eosinophils % Basophils % Neutrophils # Lymphocytes # Monocytes # Eosinophils # Basophils # Sodium Potassium Chloride Carbon Dioxide BUN Creatinine Est GFR ( Amer) Est GFR (Non-Af Amer) BUN/Creatinine Ratio Glucose POC Glucose 87 122 H 67 L Calculated Osmolality Calcium 02/22/18 02/22/18 01:29 01:29 WBC 10.8 D RBC 3.79 L Hgb 10.8 L Hct 33.2 L MCV 87.6 MCH 28.5 MCHC 32.5 RDW 14.8 H Plt Count 185 MPV 10.3 Immature Gran % 2.5 Seg Neutrophils % 70.5 Lymphocytes % 15.3 Monocytes % 10.2 Eosinophils % 0.9 Basophils % 0.6 Neutrophils # 7.6 Lymphocytes # 1.7 Monocytes # 1.1 Eosinophils # 0.1 Basophils # 0.1 Sodium 136 Potassium 3.9 Chloride 103 Carbon Dioxide 26 BUN 15 Creatinine 0.65 L Est GFR ( Amer) > 60 Est GFR (Non-Af Amer) > 60 BUN/Creatinine Ratio 23 Glucose 95 POC Glucose Calculated Osmolality 283 Calcium 8.7 Cultures: Cultures 02/17/18 01:25 Blood Culture - Final Peripheral Venipuncture No growth. - Impressions Impressions Lower Extremity CT 02/21/18 18:48 IMPRESSION: 1. Severe diffuse subcutaneous fat stranding and skin thickening in the left leg compatible with cellulitis versus lymphedema. No drainable fluid collection. 2. No acute osseous abnormality. D/ / Freddy Gutierrez MD / Freddy Gutierrez MD Interpreting Provider: Freddy Gutierrez MD Exam - Constitutional Vitals: Temp Pulse Resp BP Pulse Ox 97.7 F 67 18 115/78 93 02/22/18 06:49 02/22/18 06:49 02/22/18 06:49 02/22/18 06:49 02/22/18 06:49 General appearance: cooperative, morbidly obese, no acute distress - Head Head exam: Present: atraumatic, normal inspection, normocephalic - Eye Eye exam: Present: EOMI, normal appearance, PERRL Pupils: Present: normal accommodation - ENT ENT exam: Present: mucous membranes moist - Neck Neck exam: Present: normal inspection - Respiratory Respiratory exam: Present: CTAB. Absent: rales, respiratory distress, rhonchi, wheezes - Cardiovascular Cardiovascular exam: Present: RRR, +S1, +S2 - GI/Abdominal GI/Abdominal exam: Present: distended (obese), normal bowel sounds, soft. Absent: tenderness - Extremities Exam Extremities exam: Present: pedal edema (4+ LLE), tenderness (lower LLE). Absent : joint swelling Additional comments: 4+ edema noted to the lower aspect of the left leg from ankle to knee. Edema improved, but still marked. Erythema continues to recede from previous skin markings. Tenderness and warmth noted on palpation. No fluctuance. Scabbed lesion noted to the lateral aspect of the left ankle without drainage or fluctuance. Tinea pedis noted to the right interdigital spaces. - Neurological Exam Neurological exam: Present: alert, oriented X3, no focal deficits - Psychiatric Psychiatric exam: Present: normal affect, normal mood - Skin Skin exam: Present: intact, normal color, warm Consult Discharge Plan - Plan Referrals: Forrest Lozano DO [Primary Care Provider] - - Attending Attestation I examined this patient and my medical decision-making was reviewed with the Resident Physician. I agree with the documented findings, disposition and treatment plan as described except to the extent set forth below.
[2018-02-22] MEDS: Furosemide 40 MG/4 ML VIAL IVP SCH (11:47)
[2018-02-22] MEDS: Cholecalciferol (D-3) 1,000 UNIT TABLET PO SCH (11:48)
[2018-02-22] MEDS: Gabapentin 300 MG CAPSULE PO SCH ×3 (11:48→20:36)
[2018-02-23] MEDS: *HR* Nalbuphine 10 MG/ML AMPUL IV PRN ×5 (00:33→20:49)
[2018-02-23 02:02] LABS: Basophils # 0.1 K/mcL (0.0-0.2); Basophils % 0.8 %; Eosinophils # 0.1 K/mcL (0.0-0.6); Eosinophils % 0.7 %; Hematocrit 34.7 % (37.5-50.1); Hemoglobin 11.7 g/dL (12.9-16.9); Lymphocytes # 1.8 K/mcL (0.6-4.6); Lymphocytes % 15.3 %; Mean Corpuscular HGB Conc 33.7 g/dL (31.6-35.5); Mean Corpuscular Hemoglobin 29.4 pg (28.0-33.3); Mean Corpuscular Volume 87.2 fL (83.0-100.0); Mean Platelet Volume 10.3 fL (9.4-12.4); Monocytes # 0.9 K/mcL (0.0-1.3); Monocytes % 7.4 %; Neutrophils # 8.6 K/mcL (1.6-8.9); Platelet Count 219 K/mcL (140-400); Red Blood Count 3.98 M/mcL (4.19-5.50); Red Cell Distribution Width 14.4 % (11.5-14.5); Segmented Neutrophils % 71.8 %
[2018-02-23 02:21] LABS: BUN/Creatinine Ratio 19 (6-26); Blood Urea Nitrogen 14 mg/dL (6-20); Calcium 8.7 mg/dL (8.6-10.3); Carbon Dioxide 25 mEq/L (23-29); Chloride 102 mEq/L (98-107); Glucose 200 mg/dL (70-105); Osmolality,Calculated 288 (280-300); Potassium 3.7 mEq/L (3.5-5.1); Sodium 136 mEq/L (136-145); eGFR For African Americans > 60 (> 60); eGFR For Non-African Americans > 60 (> 60)
[2018-02-23] MEDS: *HR* Heparin 5,000 UNIT/ML VIAL SQ SCH ×2 (05:59→18:10)
[2018-02-23] MEDS: Insulin LISPRO 300 UNITS/3 ML VIAL SQ SCH ×4 (08:39→20:50)
[2018-02-23] MEDS: Gabapentin 300 MG CAPSULE PO SCH ×3 (08:54→20:49)
[2018-02-23] MEDS: Cholecalciferol (D-3) 1,000 UNIT TABLET PO SCH (08:54)
[2018-02-23] MEDS: Furosemide 40 MG/4 ML VIAL IVP SCH (08:54)
[2018-02-23] MEDS: Levofloxacin 750 MG/150 ML 750 MG/150 ML BAG IVPB SCH (08:55)
[2018-02-23] MEDS: Clotrimazole 1% CRM 15 GM TUBE TP SCH ×2 (09:05→20:49)
--- NOTE | 2018-02-23 10:11 | Infectious Disease Progress No ---
Date of Encounter: 02/23/18 Time of Encounter: 10:09 - Assessment and Plan (1) Sepsis Current Visit: Yes Status: Resolved Severe sepsis: The patient had three SIRS criteria plus lactic acidosis on admission. Likely secondary to LLE cellulitis. Improved. WBC elevated this morning. Afebrile. Tachycardia resolved. Lactic acid normalized. Blood cultures drawn 02/16/18 are negative x 2 sets. Qualifiers: Sepsis type: sepsis due to unspecified organism Qualified Code(s): A41.9 - Sepsis, unspecified organism (2) Cellulitis of left leg Current Visit: Yes Status: Acute Location: Lower left leg. Causative organism unclear. Non-purulent. Etiology unclear, but the patient does report a possible dog scratch last week. He also has a chronic ulcer scabbed ulcer to the LLE, but clinically it does not appear infected. CT of the LLE negative for abscess or underlying infectious etiology. Clinically, it appears the cellulitis has improved based on previous skin markings, minimal improvement from yesterday. Continue Vancomycin IV. Pharmacy to dose. Goal trough ~15. Continue Levaquin 750mg IV daily. Duration of treatment depends on the clinical picture, but likely a total of 14 days. May consider switching to PO antibiotics when ready for discharge. Monitor renal function and for drug toxicity and dose-adjust antibiotics. Recommend referral to the lymphedema clinic on discharge. Discussed with the patient means to help prevent recurrent cellulitis: compression stockings/dressings, ensuring skin is moisturized to help diminish skin breakdown with swelling, keeping feet clean/dry, avoiding traumatic injuries, etc. (3) Lactic acidosis Current Visit: Yes Status: Resolved Likely secondary to sepsis. Resolved. (4) Morbid obesity with BMI of 60.0-69.9, adult Current Visit: Yes Status: Acute (5) Diabetes Current Visit: Yes Status: Chronic Diet-controlled since weight loss from gastric bypass surgery. HgbA1C 6.0%. Recommend aggressive glucose monitoring and control to promote healing and prevent re-infection. Management per the primary team. Qualifiers: Diabetes mellitus type: type 2 Diabetes mellitus custodial insulin use: without terminal gauger supervisor use Diabetes mellitus complication status: without complication Qualified Code(s): E11.9 - Type 2 diabetes mellitus without complications (6) Chronic acquired lymphedema Current Visit: Yes Status: Acute Recommend referral to lymphedema clinic on discharge. (7) Tinea pedis Current Visit: Yes Status: Acute Location: Right foot. Apply Lamisil 1% to the affected area BID x 7 days (day 3). Advised the patient to keep feet clean and dry and change socks frequently. Qualifiers: Laterality: right Qualified Code(s): B35.3 - Tinea pedis - Subjective Interval history: Patient seen and examined. No acute events noted overnight. Patient states pain increased this morning due to changes in medication regimen per the primary team. Denies fevers, chills or rigors. Denies chest pain, shortness of breath, or cough. Denies nausea, vomiting, or diarrhea. Denies abdominal pain, urinary complaints, or appetite changes. States last BM was Monday. Denies oral thrush or skin lesions. States his leg might be a little better this morning. Infect Dis PN-Objective Data - Labs CBC & Chem 7: 02/23/18 01:49 02/23/18 01:49 Labs: Laboratory Results - last 24 hr 02/21/18 02/22/18 02/22/18 11:42 06:46 11:05 WBC RBC Hgb Hct MCV MCH MCHC RDW Plt Count MPV Immature Gran % Seg Neutrophils % Lymphocytes % Monocytes % Eosinophils % Basophils % Neutrophils # Lymphocytes # Monocytes # Eosinophils # Basophils # Sodium Potassium Chloride Carbon Dioxide BUN Creatinine Est GFR ( Amer) Est GFR (Non-Af Amer) BUN/Creatinine Ratio Glucose POC Glucose 91 99 113 H Calculated Osmolality Calcium 02/22/18 02/23/18 02/23/18 20:41 01:49 01:49 WBC 12.0 H RBC 3.98 L Hgb 11.7 L Hct 34.7 L MCV 87.2 MCH 29.4 MCHC 33.7 RDW 14.4 Plt Count 219 MPV 10.3 Immature Gran % 4.0 Seg Neutrophils % 71.8 Lymphocytes % 15.3 Monocytes % 7.4 Eosinophils % 0.7 Basophils % 0.8 Neutrophils # 8.6 Lymphocytes # 1.8 Monocytes # 0.9 Eosinophils # 0.1 Basophils # 0.1 Sodium 136 Potassium 3.7 Chloride 102 Carbon Dioxide 25 BUN 14 Creatinine 0.73 Est GFR ( Amer) > 60 Est GFR (Non-Af Amer) > 60 BUN/Creatinine Ratio 19 Glucose 200 H POC Glucose 97 Calculated Osmolality 288 Calcium 8.7 02/23/18 07:19 WBC RBC Hgb Hct MCV MCH MCHC RDW Plt Count MPV Immature Gran % Seg Neutrophils % Lymphocytes % Monocytes % Eosinophils % Basophils % Neutrophils # Lymphocytes # Monocytes # Eosinophils # Basophils # Sodium Potassium Chloride Carbon Dioxide BUN Creatinine Est GFR ( Amer) Est GFR (Non-Af Amer) BUN/Creatinine Ratio Glucose POC Glucose 94 Calculated Osmolality Calcium Cultures: Cultures 02/17/18 01:25 Blood Culture - Final Peripheral Venipuncture No growth. Exam - Constitutional Vitals: Temp Pulse Resp BP Pulse Ox 98.7 F 77 17 110/71 94 02/23/18 07:14 02/23/18 07:14 02/23/18 07:14 02/23/18 07:14 02/23/18 07:14 General appearance: cooperative, morbidly obese, no acute distress - Head Head exam: Present: atraumatic, normal inspection, normocephalic - Eye Eye exam: Present: EOMI, normal appearance, PERRL Pupils: Present: normal accommodation - ENT ENT exam: Present: mucous membranes moist - Neck Neck exam: Present: normal inspection - Respiratory Respiratory exam: Present: CTAB. Absent: rales, respiratory distress, rhonchi, wheezes - Cardiovascular Cardiovascular exam: Present: RRR, +S1, +S2 - GI/Abdominal GI/Abdominal exam: Present: distended (obese), normal bowel sounds, soft. Absent: tenderness - Extremities Exam Extremities exam: Present: pedal edema (4+ LLE, unchanged from yesterday), tenderness (Lower left leg). Absent: joint swelling Additional comments: Erythema and edema without change from yesterday. Scabbed lesion to the left lateral ankle remains scabbed without drainage or change. - Neurological Exam Neurological exam: Present: alert, oriented X3, no focal deficits - Psychiatric Psychiatric exam: Present: normal affect, normal mood - Skin Skin exam: Present: dry, intact, normal color, warm Consult Discharge Plan - Plan Referrals: Forrest Lozano DO [Primary Care Provider] - - Attending Attestation I examined this patient and my medical decision-making was reviewed with the Resident Physician. I agree with the documented findings, disposition and treatment plan as described except to the extent set forth below.
--- NOTE | 2018-02-23 11:50 | Internal Med Progress Note ---
Date of Encounter: 02/23/18 Time of Encounter: 09:47 - Assessment and plan (1) Cellulitis Current Visit: Yes Status: Acute Assessment and plan: LLE continues to improve from marked area. ID consulted; appreciate input. Erythema and edema improving. Continue IV vancomycin and IV levaquin. Continue toradol and nubain for pain control. Qualifiers: Site of cellulitis: extremity Site of cellulitis of extremity: lower extremity Laterality: left Qualified Code(s): L03.116 - Cellulitis of left lower limb (2) Sepsis Current Visit: Yes Status: Resolved Assessment and plan: Resolved. Continue to monitor. Qualifiers: Sepsis type: sepsis due to unspecified organism Qualified Code(s): A41.9 - Sepsis, unspecified organism (3) Hypomagnesemia Current Visit: Yes Status: Resolved Assessment and plan: Resolved. (4) Diabetes Current Visit: Yes Status: Chronic Assessment and plan: Continue diabetic diet. Continue accuchecks and SSI QID AC/HS. Qualifiers: Diabetes mellitus type: type 2 Diabetes mellitus halfway insulin use: without terminal clerk use Diabetes mellitus complication status: without complication Qualified Code(s): E11.9 - Type 2 diabetes mellitus without complications (5) DVT prophylaxis Current Visit: Yes Status: Acute Assessment and plan: Continue SQ heparin. - Time Spent With Patient Total time spent is greater than 50% in coordination of care (as documented) at patient's floor/unit and/or counseling patient: less than 15 minutes - Subjective Interval history: Patient had no acute events overnight. Patient states erythema and edema of LLE continue to improve. He has increased pain this AM due to toradol being discontinued last night. I advised him that we can restart for now due to normal renal function. He denies chest pain, SOB, fever, chills, nausea, vomiting, or abdominal pain. He has no other complaints at this time. - Constitutional Vitals: Temp Pulse Resp BP Pulse Ox 98.7 F 77 17 110/71 94 02/23/18 07:14 02/23/18 07:14 02/23/18 07:14 02/23/18 07:14 02/23/18 07:14 General appearance: Present: cooperative, A&O X 3, morbidly obese, pleasant, no acute distress, answers questions appropriately - Respiratory Respiratory exam: Present: CTAB. Absent: accessory muscle use, rales, rhonchi, wheezes Additional comments: Normal WOB - Cardiovascular Cardiovascular exam: Present: RRR, +S1, +S2. Absent: diastolic murmur, gallop, rubs, systolic murmur Additional comments: 2+ L > R BLE edema - GI/Abdominal GI/Abdominal exam: Present: normal bowel sounds, soft. Absent: distended, hepatomegaly, mass, splenomegaly, tenderness - Extremities Exam Additional comments: Improving erythema, edema, and warmth of LLE, no skin tear or drainage - Psychiatric Psychiatric exam: Present: normal affect, normal mood. Absent: agitated, anxious, depressed - Skin Skin exam: Present: dry, intact, warm. Absent: cyanosis Internal Medicine: Result - Labs CBC & Chem 7: 02/23/18 01:49 02/23/18 01:49 Labs: Short CBC 02/23/18 Range/Units 01:49 WBC 12.0 H (4.3-11.1) K/mcL Hgb 11.7 L (12.9-16.9) g/dL Hct 34.7 L (37.5-50.1) % Plt Count 219 (140-400) K/mcL Neutrophils # 8.6 (1.6-8.9) K/mcL BMP 02/23/18 01:49 Sodium 136 Potassium 3.7 Chloride 102 Carbon Dioxide 25 BUN 14 Creatinine 0.73 Glucose 200 H Calcium 8.7 Consult Discharge Plan - Plan Referrals: Forrest Lozano DO [Primary Care Provider] -
[2018-02-23] MEDS: Ketorolac 15 MG/ML VIAL IVP SCH ×2 (12:21→18:10)
[2018-02-24] MEDS: Ketorolac 15 MG/ML VIAL IVP SCH ×4 (00:37→17:25)
[2018-02-24] MEDS: *HR* Nalbuphine 10 MG/ML AMPUL IV PRN ×4 (01:58→18:58)
[2018-02-24 02:10] LABS: Basophils # 0.1 K/mcL (0.0-0.2); Basophils % 0.6 %; Eosinophils # 0.1 K/mcL (0.0-0.6); Eosinophils % 0.5 %; Hematocrit 33.9 % (37.5-50.1); Hemoglobin 10.9 g/dL (12.9-16.9); Immature Granulocytes % 2.8 % (0-4); Lymphocytes # 1.8 K/mcL (0.6-4.6); Mean Corpuscular HGB Conc 32.2 g/dL (31.6-35.5); Mean Corpuscular Hemoglobin 28.9 pg (28.0-33.3); Mean Corpuscular Volume 89.9 fL (83.0-100.0); Mean Platelet Volume 10.4 fL (9.4-12.4); Monocytes # 1.1 K/mcL (0.0-1.3); Monocytes % 11.1 %; Neutrophils # 6.6 K/mcL (1.6-8.9); Nucleated Red Blood Cells 0.2 /100 WBC (0); Platelet Count 248 K/mcL (140-400); Red Blood Count 3.77 M/mcL (4.19-5.50); Red Cell Distribution Width 14.6 % (11.5-14.5)
[2018-02-24 02:26] LABS: BUN/Creatinine Ratio 16 (6-26); Blood Urea Nitrogen 12 mg/dL (6-20); Calcium 8.5 mg/dL (8.6-10.3); Carbon Dioxide 30 mEq/L (23-29); Chloride 100 mEq/L (98-107); Glucose 92 mg/dL (70-105); Osmolality,Calculated 281 (280-300); Potassium 3.8 mEq/L (3.5-5.1); Sodium 136 mEq/L (136-145); eGFR For African Americans > 60 (> 60); eGFR For Non-African Americans > 60 (> 60)
[2018-02-24] MEDS: Acetaminophen 325 MG TABLET PO PRN (03:55)
[2018-02-24] MEDS: *HR* Heparin 5,000 UNIT/ML VIAL SQ SCH ×2 (06:15→17:26)
--- NOTE | 2018-02-24 09:10 | Internal Med Progress Note ---
Date of Encounter: 02/24/18 Time of Encounter: 09:08 - Assessment and plan (1) Cellulitis Current Visit: Yes Status: Acute Assessment and plan: LLE continues to slowly improve from marked area. Erythema and edema improving , but still with significant TTP. ID consulted; appreciate input. Continue IV vancomycin and IV levaquin. Continue toradol and nubain for pain control. Plan to transition to PO antibiotics tomorrow or Monday, and plan for discharge home with close follow up with PCP and lymphedema clinic. SW consulted for referral to lymphedema clinic. Qualifiers: Site of cellulitis: extremity Site of cellulitis of extremity: lower extremity Laterality: left Qualified Code(s): L03.116 - Cellulitis of left lower limb (2) Sepsis Current Visit: Yes Status: Resolved Assessment and plan: Resolved. Continue to monitor. Qualifiers: Sepsis type: sepsis due to unspecified organism Qualified Code(s): A41.9 - Sepsis, unspecified organism (3) Hypomagnesemia Current Visit: Yes Status: Resolved Assessment and plan: Resolved. (4) Diabetes Current Visit: Yes Status: Chronic Assessment and plan: Continue diabetic diet. Continue accuchecks and SSI QID AC/HS. Qualifiers: Diabetes mellitus type: type 2 Diabetes mellitus rodent exterminator insulin use: without rodent exterminator use Diabetes mellitus complication status: without complication Qualified Code(s): E11.9 - Type 2 diabetes mellitus without complications (5) DVT prophylaxis Current Visit: Yes Status: Acute Assessment and plan: Continue SQ heparin. - Time Spent With Patient Total time spent is greater than 50% in coordination of care (as documented) at patient's floor/unit and/or counseling patient: less than 15 minutes - Subjective Interval history: Patient had no acute events overnight. Patient states erythema and edema of LLE continue to improve. He still has significant TTP to LLE. We discussed transitioning to PO antibiotics tomorrow or Monday if he continues to improve, and then plan for discharge home with close PCP and lymphedema clinic follow up. He denies chest pain, SOB, fever, chills, nausea, vomiting, or abdominal pain. He has no other complaints at this time. - Constitutional Vitals: Temp Pulse Resp BP Pulse Ox 97.6 F 88 20 120/69 94 02/24/18 08:12 02/24/18 08:12 02/24/18 08:12 02/24/18 08:12 02/24/18 08:12 General appearance: Present: cooperative, A&O X 3, morbidly obese, pleasant, no acute distress, answers questions appropriately - Respiratory Respiratory exam: Present: CTAB. Absent: accessory muscle use, rales, rhonchi, wheezes Additional comments: Normal WOB - Cardiovascular Cardiovascular exam: Present: RRR, +S1, +S2. Absent: diastolic murmur, gallop, rubs, systolic murmur Additional comments: 2+ L > R BLE edema - GI/Abdominal GI/Abdominal exam: Present: normal bowel sounds, soft. Absent: distended, hepatomegaly, mass, splenomegaly, tenderness - Psychiatric Psychiatric exam: Present: normal affect, normal mood. Absent: agitated, anxious, depressed - Skin Skin exam: Present: dry, intact, warm. Absent: cyanosis Additional comments: Moderate erythema and edema of LLE, slowly improving from yesterday, still with moderate TTP, no drainage, BLE lymphedematous changes Internal Medicine: Result - Labs CBC & Chem 7: 02/24/18 01:08 02/24/18 01:08 Labs: Short CBC 02/24/18 Range/Units 01:08 WBC 9.9 (4.3-11.1) K/mcL Hgb 10.9 L (12.9-16.9) g/dL Hct 33.9 L (37.5-50.1) % Plt Count 248 (140-400) K/mcL Neutrophils # 6.6 (1.6-8.9) K/mcL BMP 02/24/18 01:08 Sodium 136 Potassium 3.8 Chloride 100 Carbon Dioxide 30 H BUN 12 Creatinine 0.75 Glucose 92 Calcium 8.5 L Consult Discharge Plan - Plan Referrals: Forrest Lozano DO [Primary Care Provider] -
[2018-02-24] MEDS: Insulin LISPRO 300 UNITS/3 ML VIAL SQ SCH ×4 (09:24→20:57)
[2018-02-24] MEDS: Gabapentin 300 MG CAPSULE PO SCH ×3 (10:25→22:04)
[2018-02-24] MEDS: Cholecalciferol (D-3) 1,000 UNIT TABLET PO SCH (10:25)
[2018-02-24] MEDS: Furosemide 40 MG/4 ML VIAL IVP SCH (10:25)
[2018-02-24] MEDS: Levofloxacin 750 MG/150 ML 750 MG/150 ML BAG IVPB SCH (10:26)
[2018-02-24] MEDS: Clotrimazole 1% CRM 15 GM TUBE TP SCH ×2 (10:29→22:04)
[2018-02-24] MEDS: *HR* HYDROcodone/Acet 7.5/325 mg TABLET PO PRN (21:55)
[2018-02-25] MEDS: Ketorolac 15 MG/ML VIAL IVP SCH ×5 (00:05→23:47)
[2018-02-25] MEDS: *HR* Nalbuphine 10 MG/ML AMPUL IV PRN ×4 (02:00→19:31)
[2018-02-25 03:07] LABS: Basophils # 0.1 K/mcL (0.0-0.2); Basophils % 0.7 %; Eosinophils # 0.1 K/mcL (0.0-0.6); Eosinophils % 0.8 %; Hematocrit 34.7 % (37.5-50.1); Hemoglobin 11.1 g/dL (12.9-16.9); Immature Granulocytes % 1.9 % (0-4); Lymphocytes # 1.9 K/mcL (0.6-4.6); Lymphocytes % 18.7 %; Mean Corpuscular Volume 87.6 fL (83.0-100.0); Mean Platelet Volume 10.1 fL (9.4-12.4); Monocytes # 1.2 K/mcL (0.0-1.3); Monocytes % 11.3 %; Neutrophils # 6.9 K/mcL (1.6-8.9); Platelet Count 283 K/mcL (140-400); Red Blood Count 3.96 M/mcL (4.19-5.50); Red Cell Distribution Width 14.4 % (11.5-14.5); Segmented Neutrophils % 66.6 %
[2018-02-25 03:23] LABS: BUN/Creatinine Ratio 19 (6-26); Blood Urea Nitrogen 15 mg/dL (6-20); Calcium 8.5 mg/dL (8.6-10.3); Carbon Dioxide 29 mEq/L (23-29); Chloride 101 mEq/L (98-107); Glucose 111 mg/dL (70-105); Osmolality,Calculated 282 (280-300); Sodium 135 mEq/L (136-145); eGFR For African Americans > 60 (> 60); eGFR For Non-African Americans > 60 (> 60)
[2018-02-25] MEDS: *HR* Heparin 5,000 UNIT/ML VIAL SQ SCH ×2 (05:43→17:46)
[2018-02-25] MEDS: Insulin LISPRO 300 UNITS/3 ML VIAL SQ SCH ×4 (08:28→21:06)
[2018-02-25] MEDS: Cholecalciferol (D-3) 1,000 UNIT TABLET PO SCH (08:35)
[2018-02-25] MEDS: Furosemide 40 MG/4 ML VIAL IVP SCH (08:35)
[2018-02-25] MEDS: Gabapentin 300 MG CAPSULE PO SCH ×3 (08:35→19:31)
[2018-02-25] MEDS: Levofloxacin 750 MG/150 ML 750 MG/150 ML BAG IVPB SCH (08:35)
[2018-02-25] MEDS: Clotrimazole 1% CRM 15 GM TUBE TP SCH ×2 (08:38→19:31)
--- NOTE | 2018-02-25 09:44 | Internal Med Progress Note ---
Date of Encounter: 02/25/18 Time of Encounter: 09:42 - Assessment and plan (1) Cellulitis Current Visit: Yes Status: Acute Assessment and plan: LLE continues to slowly improve from marked area. Erythema and edema improving. Pain also now improving. ID consulted; appreciate input. Continue IV vancomycin and IV levaquin. Continue toradol and nubain for pain control. Plan to transition to PO antibiotics tomorrow per ID recommendations, and plan for discharge home with close follow up with PCP and lymphedema clinic. SW consulted for referral to lymphedema clinic. Qualifiers: Site of cellulitis: extremity Site of cellulitis of extremity: lower extremity Laterality: left Qualified Code(s): L03.116 - Cellulitis of left lower limb (2) Sepsis Current Visit: Yes Status: Resolved Assessment and plan: Resolved. Continue to monitor. Qualifiers: Sepsis type: sepsis due to unspecified organism Qualified Code(s): A41.9 - Sepsis, unspecified organism (3) Hypomagnesemia Current Visit: Yes Status: Resolved Assessment and plan: Resolved. (4) Diabetes Current Visit: Yes Status: Chronic Assessment and plan: Continue diabetic diet. Continue accuchecks and SSI QID AC/HS. Qualifiers: Diabetes mellitus type: type 2 Diabetes mellitus assisted insulin use: without assisted use Diabetes mellitus complication status: without complication Qualified Code(s): E11.9 - Type 2 diabetes mellitus without complications (5) DVT prophylaxis Current Visit: Yes Status: Acute Assessment and plan: Continue SQ heparin. - Time Spent With Patient Total time spent is greater than 50% in coordination of care (as documented) at patient's floor/unit and/or counseling patient: less than 15 minutes - Subjective Interval history: Patient had no acute events overnight. Patient states erythema and edema of LLE continue to improve slowly. Pain in LLE also slowly improving now. We discussed transitioning to PO antibiotics tomorrow per ID's recommendations if he continues to improve, and then plan for discharge home with close PCP and lymphedema clinic follow up. He denies chest pain, SOB, fever, chills, nausea, vomiting, or abdominal pain. He has no other complaints at this time. - Constitutional Vitals: Temp Pulse Resp BP Pulse Ox 98.1 F 67 16 118/76 93 02/25/18 07:26 02/25/18 07:26 02/25/18 07:26 02/25/18 07:26 02/25/18 07:26 General appearance: Present: cooperative, A&O X 3, morbidly obese, pleasant, no acute distress, answers questions appropriately - Respiratory Respiratory exam: Present: CTAB. Absent: accessory muscle use, rales, rhonchi, wheezes Additional comments: Normal WOB - Cardiovascular Cardiovascular exam: Present: RRR, +S1, +S2. Absent: diastolic murmur, gallop, rubs, systolic murmur Additional comments: 2+ L > R BLE edema - GI/Abdominal GI/Abdominal exam: Present: normal bowel sounds, soft. Absent: distended, hepatomegaly, mass, splenomegaly, tenderness - Extremities Exam Additional comments: Moderate edema and erythema of LLE, chronic lymphedematous changes to BLE - Psychiatric Psychiatric exam: Present: normal affect, normal mood. Absent: agitated, anxious, depressed - Skin Skin exam: Present: dry, intact, warm. Absent: cyanosis, rash Internal Medicine: Result - Labs CBC & Chem 7: 02/25/18 01:54 02/25/18 01:54 Labs: Short CBC 02/25/18 Range/Units 01:54 WBC 10.3 (4.3-11.1) K/mcL Hgb 11.1 L (12.9-16.9) g/dL Hct 34.7 L (37.5-50.1) % Plt Count 283 (140-400) K/mcL Neutrophils # 6.9 (1.6-8.9) K/mcL BMP 02/25/18 02/25/18 01:54 01:54 Sodium 135 L Potassium 4.0 Chloride 101 Carbon Dioxide 29 BUN 15 15 Creatinine 0.81 0.79 Glucose 111 H Calcium 8.5 L Consult Discharge Plan - Plan Referrals: Forrest Lozano DO [Primary Care Provider] -
[2018-02-25] MEDS: Acetaminophen 325 MG TABLET PO PRN (20:50)
[2018-02-26] MEDS: *HR* Nalbuphine 10 MG/ML AMPUL IV PRN ×2 (02:32→08:56)
[2018-02-26 02:39] LABS: Basophils # 0.1 K/mcL (0.0-0.2); Basophils % 0.8 %; Eosinophils # 0.1 K/mcL (0.0-0.6); Eosinophils % 0.8 %; Hematocrit 33.5 % (37.5-50.1); Hemoglobin 10.8 g/dL (12.9-16.9); Immature Granulocytes % 1.3 % (0-4); Lymphocytes # 1.9 K/mcL (0.6-4.6); Lymphocytes % 18.1 %; Mean Corpuscular HGB Conc 32.2 g/dL (31.6-35.5); Mean Corpuscular Hemoglobin 28.6 pg (28.0-33.3); Mean Corpuscular Volume 88.9 fL (83.0-100.0); Mean Platelet Volume 9.9 fL (9.4-12.4); Monocytes # 1.1 K/mcL (0.0-1.3); Monocytes % 10.9 %; Neutrophils # 7.1 K/mcL (1.6-8.9); Platelet Count 286 K/mcL (140-400); Red Blood Count 3.77 M/mcL (4.19-5.50); Red Cell Distribution Width 14.4 % (11.5-14.5); Segmented Neutrophils % 68.1 %
[2018-02-26 02:56] LABS: BUN/Creatinine Ratio 21 (6-26); Blood Urea Nitrogen 16 mg/dL (6-20); Calcium 8.4 mg/dL (8.6-10.3); Carbon Dioxide 28 mEq/L (23-29); Chloride 102 mEq/L (98-107); Glucose 108 mg/dL (70-105); Osmolality,Calculated 282 (280-300); Sodium 135 mEq/L (136-145); eGFR For African Americans > 60 (> 60); eGFR For Non-African Americans > 60 (> 60)
[2018-02-26] MEDS: *HR* Heparin 5,000 UNIT/ML VIAL SQ SCH (05:41)
[2018-02-26] MEDS: Ketorolac 15 MG/ML VIAL IVP SCH ×2 (05:41→13:11)
--- NOTE | 2018-02-26 08:16 | Internal Med Progress Note ---
Date of Encounter: 02/26/18 Time of Encounter: 08:14 - Assessment and plan (1) Cellulitis Current Visit: Yes Status: Acute Assessment and plan: LLE continues to slowly improve from marked area. Erythema and edema improving. Pain still significant. ID consulted; appreciate input. Continue IV vancomycin and IV levaquin. Continue toradol and nubain for pain control. Plan to transition to PO antibiotics today or tomorrow per ID recommendations, and plan for discharge home with close follow up with PCP and lymphedema clinic. SW consulted for referral to lymphedema clinic. Qualifiers: Site of cellulitis: extremity Site of cellulitis of extremity: lower extremity Laterality: left Qualified Code(s): L03.116 - Cellulitis of left lower limb (2) Sepsis Current Visit: Yes Status: Resolved Assessment and plan: Resolved. Continue to monitor. Qualifiers: Sepsis type: sepsis due to unspecified organism Qualified Code(s): A41.9 - Sepsis, unspecified organism (3) Hypomagnesemia Current Visit: Yes Status: Resolved Assessment and plan: Resolved. (4) Diabetes Current Visit: Yes Status: Chronic Assessment and plan: Continue diabetic diet. Continue accuchecks and SSI QID AC/HS. Qualifiers: Diabetes mellitus type: type 2 Diabetes mellitus middle or intermediate school principal insulin use: without middle or intermediate school principal use Diabetes mellitus complication status: without complication Qualified Code(s): E11.9 - Type 2 diabetes mellitus without complications (5) DVT prophylaxis Current Visit: Yes Status: Acute Assessment and plan: Continue SQ heparin. - Time Spent With Patient Total time spent is greater than 50% in coordination of care (as documented) at patient's floor/unit and/or counseling patient: less than 15 minutes - Subjective Interval history: Patient had no acute events overnight. Patient states erythema and edema of LLE still continues to improve slowly. He is still with a good amount of pain in LLE. We again discussed transitioning to PO antibiotics today or tomorrow per ID's recommendations, and then plan for discharge home with close PCP and lymphedema clinic follow up. He denies chest pain, SOB, fever, chills, nausea, vomiting, or abdominal pain. He has no other complaints at this time. - Constitutional Vitals: Temp Pulse Resp BP Pulse Ox 98.5 F 73 16 121/78 96 02/26/18 06:58 02/26/18 06:58 02/26/18 06:58 02/26/18 06:58 02/26/18 06:58 General appearance: Present: cooperative, A&O X 3, morbidly obese, pleasant, no acute distress, answers questions appropriately - Respiratory Respiratory exam: Present: CTAB. Absent: accessory muscle use, rales, rhonchi, wheezes Additional comments: Normal WOB - Cardiovascular Cardiovascular exam: Present: RRR, +S1, +S2. Absent: diastolic murmur, gallop, rubs, systolic murmur Additional comments: 2+ L > R BLE edema - GI/Abdominal GI/Abdominal exam: Present: normal bowel sounds, soft. Absent: distended, hepatomegaly, mass, splenomegaly, tenderness - Extremities Exam Additional comments: Moderate edema and erythema of LLE, chronic lymphedematous changes to BLE - Psychiatric Psychiatric exam: Present: normal affect, normal mood. Absent: agitated, anxious, depressed - Skin Skin exam: Present: dry, intact, warm. Absent: cyanosis Internal Medicine: Result - Labs CBC & Chem 7: 02/26/18 02:15 02/26/18 02:15 Labs: Short CBC 02/26/18 Range/Units 02:15 WBC 10.4 (4.3-11.1) K/mcL Hgb 10.8 L (12.9-16.9) g/dL Hct 33.5 L (37.5-50.1) % Plt Count 286 (140-400) K/mcL Neutrophils # 7.1 (1.6-8.9) K/mcL BMP 02/26/18 02:15 Sodium 135 L Potassium 4.0 Chloride 102 Carbon Dioxide 28 BUN 16 Creatinine 0.78 Glucose 108 H Calcium 8.4 L Consult Discharge Plan - Plan Referrals: Forrest Lozano DO [Primary Care Provider] -
[2018-02-26] MEDS: Insulin LISPRO 300 UNITS/3 ML VIAL SQ SCH ×2 (08:22→11:58)
[2018-02-26] MEDS: Furosemide 40 MG/4 ML VIAL IVP SCH (08:55)
[2018-02-26] MEDS: Cholecalciferol (D-3) 1,000 UNIT TABLET PO SCH (08:55)
[2018-02-26] MEDS: Gabapentin 300 MG CAPSULE PO SCH (08:55)
[2018-02-26] MEDS: Levofloxacin 750 MG/150 ML 750 MG/150 ML BAG IVPB SCH (08:56)
[2018-02-26] MEDS: Clotrimazole 1% CRM 15 GM TUBE TP SCH (08:57)
[2018-02-26] MEDS ORDERED: levoFLOXacin 750 MG TABLET PO ONE (10:29)
--- NOTE | 2018-02-26 10:59 | Infectious Disease Progress No ---
Date of Encounter: 02/26/18 Time of Encounter: 10:57 - Assessment and Plan (1) Sepsis Current Visit: Yes Status: Resolved Severe sepsis: The patient had three SIRS criteria plus lactic acidosis on admission. Likely secondary to LLE cellulitis. Improved. WBC normal. Afebrile. Tachycardia resolved. Lactic acid normalized. Blood cultures drawn 02/16/18 are negative x 2 sets. Qualifiers: Sepsis type: sepsis due to unspecified organism Qualified Code(s): A41.9 - Sepsis, unspecified organism (2) Cellulitis of left leg Current Visit: Yes Status: Acute Location: Lower left leg. Causative organism unclear. Non-purulent. Etiology unclear, but the patient does report a possible dog scratch last week. He also has a chronic ulcer scabbed ulcer to the LLE, but clinically it does not appear infected. CT of the LLE negative for abscess or underlying infectious etiology. Clinically, it appears the cellulitis has improved based on previous skin markings, minimal improvement from yesterday. Continue Vancomycin IV. Pharmacy to dose. Goal trough ~15. Day 10. Continue Levaquin 750mg IV daily. The patient's IV has gone bad this morning, so will give the patient his Levaquin in PO form now since the bioavailability of Levaquin is about 95%. Day 10 of gram negative coverage. Duration of treatment depends on the clinical picture, but likely a total of 14 days. May consider switching to PO antibiotics when ready for discharge. Recommend doxycycline and PO Levaquin to complete course of treatment. Monitor renal function and for drug toxicity and dose-adjust antibiotics. Recommend referral to the lymphedema clinic on discharge. Discussed with the patient means to help prevent recurrent cellulitis: compression stockings/dressings, ensuring skin is moisturized to help diminish skin breakdown with swelling, keeping feet clean/dry, avoiding traumatic injuries, etc. (3) Lactic acidosis Current Visit: Yes Status: Resolved Likely secondary to sepsis. Resolved. (4) Morbid obesity with BMI of 60.0-69.9, adult Current Visit: Yes Status: Acute (5) Diabetes Current Visit: Yes Status: Chronic Diet-controlled since weight loss from gastric bypass surgery. HgbA1C 6.0%. Recommend aggressive glucose monitoring and control to promote healing and prevent re-infection. Management per the primary team. Qualifiers: Diabetes mellitus type: type 2 Diabetes mellitus snf insulin use: without snf use Diabetes mellitus complication status: without complication Qualified Code(s): E11.9 - Type 2 diabetes mellitus without complications (6) Chronic acquired lymphedema Current Visit: Yes Status: Acute Recommend referral to lymphedema clinic on discharge. (7) Tinea pedis Current Visit: Yes Status: Acute Location: Right foot. Apply Lamisil 1% to the affected area BID x 7 days (day 6). Advised the patient to keep feet clean and dry and change socks frequently. Qualifiers: Laterality: right Qualified Code(s): B35.3 - Tinea pedis - Subjective Interval history: Patient seen and examined. Weekend notes reviewed. No acute events noted overnight. Patient states continues to have pain in the LLE, improved, but his skin feel very tight when he tries to walk. Denies fevers, chills or rigors. Denies chest pain, shortness of breath, or cough. Denies nausea, vomiting, or diarrhea. Denies abdominal pain, urinary complaints, or appetite changes. Denies oral thrush or skin lesions. States redness and swelling are improved. Infect Dis PN-Objective Data - Labs CBC & Chem 7: 02/26/18 02:15 02/26/18 02:15 Labs: Laboratory Results - last 24 hr 02/25/18 02/25/18 02/26/18 16:42 20:12 02:15 WBC 10.4 RBC 3.77 L Hgb 10.8 L Hct 33.5 L MCV 88.9 MCH 28.6 MCHC 32.2 RDW 14.4 Plt Count 286 MPV 9.9 Immature Gran % 1.3 Seg Neutrophils % 68.1 Lymphocytes % 18.1 Monocytes % 10.9 Eosinophils % 0.8 Basophils % 0.8 Neutrophils # 7.1 Lymphocytes # 1.9 Monocytes # 1.1 Eosinophils # 0.1 Basophils # 0.1 Sodium Potassium Chloride Carbon Dioxide BUN Creatinine Est GFR ( Amer) Est GFR (Non-Af Amer) BUN/Creatinine Ratio Glucose POC Glucose 103 H 132 H Calculated Osmolality Calcium 02/26/18 02:15 WBC RBC Hgb Hct MCV MCH MCHC RDW Plt Count MPV Immature Gran % Seg Neutrophils % Lymphocytes % Monocytes % Eosinophils % Basophils % Neutrophils # Lymphocytes # Monocytes # Eosinophils # Basophils # Sodium 135 L Potassium 4.0 Chloride 102 Carbon Dioxide 28 BUN 16 Creatinine 0.78 Est GFR ( Amer) > 60 Est GFR (Non-Af Amer) > 60 BUN/Creatinine Ratio 21 Glucose 108 H POC Glucose Calculated Osmolality 282 Calcium 8.4 L Cultures: Cultures 02/17/18 01:25 Blood Culture - Final Peripheral Venipuncture No growth. Exam - Constitutional Vitals: Temp Pulse Resp BP Pulse Ox 98.5 F 73 16 121/78 96 02/26/18 06:58 02/26/18 06:58 02/26/18 06:58 02/26/18 06:58 02/26/18 06:58 General appearance: cooperative, morbidly obese, no acute distress - Head Head exam: Present: atraumatic, normal inspection, normocephalic - Eye Eye exam: Present: EOMI, normal appearance, PERRL Pupils: Present: normal accommodation - ENT ENT exam: Present: mucous membranes moist - Neck Neck exam: Present: normal inspection - Respiratory Respiratory exam: Present: CTAB. Absent: rales, respiratory distress, rhonchi, wheezes - Cardiovascular Cardiovascular exam: Present: RRR, +S1, +S2 - GI/Abdominal GI/Abdominal exam: Present: distended (obese), normal bowel sounds, soft. Absent: tenderness - Extremities Exam Extremities exam: Present: pedal edema (3+ LLE), tenderness (LLE). Absent: joint swelling Additional comments: LLE erythema and edema continue to improve and erythema is receded from previous skin markings. BLE venous stasis dermatitis noted. - Neurological Exam Neurological exam: Present: alert, oriented X3, no focal deficits - Psychiatric Psychiatric exam: Present: normal affect, normal mood - Skin Skin exam: Present: dry, intact, normal color, warm Consult Discharge Plan - Plan Referrals: Forrest Lozano DO [Primary Care Provider] - 03/01/18 10:30 am
--- NOTE | 2018-02-26 15:29 | Discharge Summary ---
- NOTES TO OUTPATIENT PROVIDER Notes to Outpatient Provider: Follow up with PCP in 2-3 days after discharge. Recheck BMP and CBC at that time. Follow up in lymphedema clinic as directed. Orders not resulted at time of discharge: Pending orders 02/27/18 02:00 Vancomycin,Trough Timed 02/27/18 04:00 Basic Metabolic Panel AM 0400 CBC [Complete Blood Count] [HEME] AM 0400 Date of Encounter: 02/26/18 Time of Encounter: 15:27 - Discharge Diagnosis (1) Cellulitis Priority: Primary Status: Acute Qualifiers: Site of cellulitis: extremity Site of cellulitis of extremity: lower extremity Laterality: left Qualified Code(s): L03.116 - Cellulitis of left lower limb (2) Sepsis Priority: Secondary Status: Resolved Qualifiers: Sepsis type: sepsis due to unspecified organism Qualified Code(s): A41.9 - Sepsis, unspecified organism (3) Hypomagnesemia Priority: Secondary Status: Resolved (4) Diabetes Priority: Secondary Status: Chronic Qualifiers: Diabetes mellitus type: type 2 Diabetes mellitus watcher [employer] insulin use: without watcher [employer] use Diabetes mellitus complication status: without complication Qualified Code(s): E11.9 - Type 2 diabetes mellitus without complications (5) DVT prophylaxis Priority: Secondary Status: Acute Hospital course: Mr. Overton is a 42 year old male admitted for sepsis likely secondary to LLE cellulitis. He was admitted to general medical floor. He was started on IVF, IV vancomycin, and IV zosyn. Sepsis resolved, but LLE cellulitis was unchanged. He was switched on day 3 to IV vancomycin and IV cefepime. He started to improve on this regimen, albeit slowly. Infectious disease was consulted at the request of patient and his family. ID recommended switching IV cefepime to levaquin. He continued to improve. ID decided to discharge him with 4 more days of levaquin 750 mg PO daily and doxycycline 100 mg PO Q12H ( total 14 days of antibiotics). He will follow up with his PCP in 2-3 days after discharge. A repeat BMP and CBC can be checked at that time. He will also follow up in outpatient lymphedema clinic. Patient has met maximum benefit of this hospitalization and will be discharged home in stable condition. Discharge discussed with: patient, nurse, social work, retail wireless sales consultant (Infectious Disease) - Time Spent with Patient Total time spent providing and/or coordinating discharge services: Greater than 30 minutes - Discharge Medications Prescriptions: Clotrimazole 1% CRM [Lotrimin 1%] 1 appl TP BID #1 tube Doxycycline 100 mg PO Q12H 4 Days #8 capsule levoFLOXacin [Levaquin] 750 mg PO DAILY 4 Days #4 tablet Home Medications: Albuterol Sulfate [Albuterol Inhaler] 2 puff IH Q6HR PRN #1 hfa.aer.ad 10/16/16 [Rx] Cholecalciferol (D-3) [Vitamin D] 1,000 unit PO DAILY 10/16/16 [History] Furosemide [Lasix] 40 mg PO DAILY 10/16/16 [History] Gabapentin [Neurontin] 300 mg PO TID 10/16/16 [History] HydrOXYzine 50 mg PO QID PRN 10/16/16 [History] Ibuprofen [Motrin] 800 mg PO TID 10/16/16 [History] Paroxetine HCl [Paxil] 20 mg PO DAILY 10/16/16 [History] Potassium Chloride [K-Tab ER] 10 meq PO DAILY 10/16/16 [History] Clotrimazole 1% CRM [Lotrimin 1%] 1 appl TP BID #1 tube 02/26/18 [Rx] Doxycycline 100 mg PO Q12H 4 Days #8 capsule 02/26/18 [Rx] levoFLOXacin [Levaquin] 750 mg PO DAILY 4 Days #4 tablet 02/26/18 [Rx] Allergies/Adverse Reactions: 3 Allergy/AdvReac Type Severity Reaction Status Date / Time No Known Allergies Allergy Verified 02/17/18 09:56 Date of admission: 02/16/18 23:55 Primary care physician: Forrest Lozano DO Consults: 02/21/18 11:39 Consult to Infectious Diseases [CONS] Routine Consulting Provider: Infectious Disease [place] Reason for Consult: LLE Cellulitis Call Completed: Yes 02/24/18 09:09 Consult to Log Snaker [CONS] Routine Reason for SW Consult: Please set up referral to outpatient lymphedema clinic (previously went to [place]). Discharging clinician: Jason Mendez Anticipated date of discharge: 02/26/18 - Constitutional Vitals: Temp Pulse Resp BP Pulse Ox 98.7 F 81 16 117/79 97 02/26/18 10:00 02/26/18 10:00 02/26/18 10:00 02/26/18 10:00 02/26/18 10:00 Exam: PLEASE SEE PHYSICAL EXAMINATION FROM MY PROGRESS NOTE FROM TODAY - Patient Status Disposition: Home, Self-Care Condition: Good Overall status at discharge: patient is progressing back to baseline - Discharge Instructions Follow Up With: Forrest Lozano DO [Primary Care Provider] - 03/01/18 10:30 am Additional Instructions: Follow up with PCP in 2-3 days after discharge. Recheck BMP and CBC at that time. Follow up in lymphedema clinic as directed. - Diet and Activity Activity: resume usual activities as tolerated Diet: diabetic diet
[2018-02-26 15:46] VITALS: BP 126/84
[2018-02-26] MEDS ORDERED: Aminoglycoside Consult 1 EACH MC ONE (16:44)
[2018-02-27] MEDS ORDERED: levoFLOXacin 750 MG TABLET PO SCH (09:00)
== END 2018-02-26 16:45 | disposition home or self-care (01) | DRG 872 ==
LOC: 3NENU → SUATTDRO 23:55
PROVIDERS: ADMIT Internal Medicine; ATTEND Internal Medicine

== ENCOUNTER 2018-09-28 10:34 | Inpatient (IN) ==
[2018-09-28] MEDS ORDERED: Ipratropium/Albuterol Neb 3 ML IH ONE (12:45)
--- NOTE | 2018-09-28 12:45 | Emergency Department Note ---
Disposition Clinical Impression: Unable to ambulate, Morbid obesity with BMI of 60.0-69.9, adult Leukocytosis Qualifiers: Leukocytosis type: unspecified Qualified Code(s): D72.829 - Elevated white blood cell count, unspecified Disposition: Admitted As Inpatient Condition: Fair Time of Disposition: 18:00 General Adult HPI - General Chief complaint: ED Extremity Problem,Nontraumatic Stated complaint: Bi-lateral LE cellulitis,leg weakness Time Seen by Provider: 09/28/18 12:18 Nursing Notes Reviewed: Yes Vital Signs Reviewed: Yes - History of Present Illness HPI Narrative: Bilateral lower extremity edema which is chronic and he does have lymphedema and is on disability because of his lymphedema and presents today because of weakness in both lower extremities which began this morning to the point that it is difficult for him to bear weight. He has had some recent increase in his dyspnea with exertion and he denies any chest pain or discomfort or tightness or pressure. He does not have any redness of the legs and denies any fever. He has had multiple Doppler studies of the lower extremities without evidence of DVT. Social history: Smoker, no alcohol or drugs. No history of injection drug use Pain Scale: 10 - Related Data Home Medications Medication Instructions Recorded Confirmed Furosemide [Lasix] 40 mg PO DAILY 10/16/16 09/28/18 Gabapentin [Neurontin] 300 mg PO TID 10/16/16 09/28/18 Ibuprofen [Motrin] 800 mg PO TID 10/16/16 09/28/18 Paroxetine HCl [Paxil] 20 mg PO DAILY 10/16/16 09/28/18 Potassium Chloride [K-Tab ER] 10 meq PO DAILY 10/16/16 09/28/18 Cholecalciferol (Vitamin D3) 5,000 unit PO DAILY 05/20/18 09/28/18 [Vitamin D3] Buspirone HCl [Buspar] 10 mg PO BID 09/28/18 09/28/18 Previous Rx's Medication Instructions Recorded Albuterol Sulfate [Albuterol 2 puff IH Q6HR PRN #1 hfa.aer.ad 10/16/16 Inhaler] Ascorbic Acid [C-500] 500 mg PO DAILY #30 tablet 05/22/18 Ferrous Sulfate 325 mg PO DAILY #30 tablet 05/22/18 Allergies Allergy/AdvReac Type Severity Reaction Status Date / Time No Known Allergies Allergy Verified 09/28/18 10:52 All systems ED: reviewed and negative except as stated. Review of Systems: As Per HPI Past Medical History - Past Medical History Medical history: Reports: diabetes, hypertension, other Psychiatric history: Reports: no psych history - Social History Smoking Status: Current every day smoker Smokeless Tobacco Status: No Alcohol use: Reports: rarely Drug use: Reports: none Physical Exam CONSTITUTIONAL: Alert and oriented X3, well-nourished, well appearing, in no apparent distress HEAD: Normocephalic; atraumatic. EYES: PERRL, no scleral icterus. NOSE: The nose is normal in appearance without rhinorrhea RESP: Normal chest excursion with respiration; breath sounds clear and equal bilaterally; no wheeze minimal bilateral wheezing which is symmetric CARD: Regular rhythm, without murmurs, rub or gallop ABD: Non-distended; non-tender, soft,without rigidity, rebound or guarding SKIN: Normal for age and race; warm and dry; no apparent lesions Extremities: Bilateral significant lymphedema swelling with some chronic dark and brown areas from chronic changes the lower extremities but no erythema. No asymmetry, no specific calf muscle pain, dorsal pedal pulses are 2+ and equal bilaterally. No signs of infection Course Vital Signs Temperature 98.9 F 09/28/18 10:52 Pulse Rate 84 09/28/18 10:52 Respiratory Rate 20 09/28/18 10:52 Blood Pressure 127/75 09/28/18 10:52 O2 Sat by Pulse Oximetry 98 09/28/18 10:52 Temperature 98.9 F 09/28/18 10:52 Pulse Rate 84 09/28/18 10:52 Respiratory Rate 20 09/28/18 13:47 Blood Pressure 127/75 09/28/18 10:52 O2 Sat by Pulse Oximetry 98 09/28/18 13:47 Oxygen Delivery Oxygen Delivery Room Air Medical Decision Making - [facility] Narrative Medical decision making narrative: Patient will have a EKG, chest x-ray, labs including BMP and troponin as well as a DuoNeb treatment and I will reassess the patient. I do not suspect deep vein thrombosis, lower extremity infection and with his shortness of breath is more likely an asthma or COPD exacerbation as he does have wheezing but I we will initiate further evaluations for possible CHF. Denies any orthopnea or paroxysmal nocturnal dyspnea 1245 I did review the patient's labs. Concern for the white blood cell count 24,000. Patient did get blood cultures. Antibiotics are started. I do not see signs of congestive heart failure based on the chest x-ray or the BNP. Troponin is negative. The hospitalist did call back and the patient will be admitted to the hospital and he has accepted the patient for admission. I did review the patient's EKG showing normal sinus rhythm with a rate of 80 without acute ischemic change 1800 - Medical Records Medical records reviewed: Yes I reviewed the patient's medical records. - Lab Data Lab results reviewed: Yes I reviewed the patient's lab results. Result diagrams: 09/28/18 12:52 09/28/18 12:52 Lab Results 09/28/18 09/28/18 09/28/18 Range/Units 12:52 12:52 12:52 WBC 24.8 H (4.3-11.1) K/mcL RBC 4.88 (4.19-5.50) M/mcL Hgb 13.6 (12.9-16.9) g/dL Hct 43.3 (37.5-50.1) % MCV 88.7 (83.0-100.0) fL MCH 27.9 L (28.0-33.3) pg MCHC 31.4 L (31.6-35.5) g/dL RDW 14.3 (11.5-14.5) % Plt Count 136 L (140-400) K/mcL MPV 10.0 (9.4-12.4) fL Sodium 136 (136-145) mEq/L Potassium 4.0 (3.5-5.1) mEq/L Chloride 106 (98-107) mEq/L Carbon Dioxide 26 (23-29) mEq/L BUN 15 (6-20) mg/dL Creatinine 0.72 (0.70-1.30) mg/dL Est GFR ( Amer) > 60 (> 60) Est GFR (Non-Af Amer) > 60 (> 60) BUN/Creatinine Ratio 21 (6-26) Glucose 97 (70-105) mg/dL Calculated Osmolality 283 (280-300) Lactic Acid (0.5-2.2) mmol/L Calcium 8.8 (8.6-10.3) mg/dL Troponin I < 0.03 (< 0.04) ng/mL B-Natriuretic Peptide 38 (Less than 100) pg/mL 09/28/18 Range/Units 13:38 WBC (4.3-11.1) K/mcL RBC (4.19-5.50) M/mcL Hgb (12.9-16.9) g/dL Hct (37.5-50.1) % MCV (83.0-100.0) fL MCH (28.0-33.3) pg MCHC (31.6-35.5) g/dL RDW (11.5-14.5) % Plt Count (140-400) K/mcL MPV (9.4-12.4) fL Sodium (136-145) mEq/L Potassium (3.5-5.1) mEq/L Chloride (98-107) mEq/L Carbon Dioxide (23-29) mEq/L BUN (6-20) mg/dL Creatinine (0.70-1.30) mg/dL Est GFR ( Amer) (> 60) Est GFR (Non-Af Amer) (> 60) BUN/Creatinine Ratio (6-26) Glucose (70-105) mg/dL Calculated Osmolality (280-300) Lactic Acid 1.1 (0.5-2.2) mmol/L Calcium (8.6-10.3) mg/dL Troponin I (< 0.04) ng/mL B-Natriuretic Peptide (Less than 100) pg/mL - Radiology Data Radiology results reviewed: Yes I reviewed the patient's radiology results.
[2018-09-28 13:08] LABS: Hematocrit 43.3 % (37.5-50.1); Hemoglobin 13.6 g/dL (12.9-16.9); Mean Corpuscular HGB Conc 31.4 g/dL (31.6-35.5); Mean Corpuscular Hemoglobin 27.9 pg (28.0-33.3); Mean Corpuscular Volume 88.7 fL (83.0-100.0); Platelet Count 136 K/mcL (140-400); Red Blood Count 4.88 M/mcL (4.19-5.50); Red Cell Distribution Width 14.3 % (11.5-14.5)
[2018-09-28 13:24] LABS: BUN/Creatinine Ratio 21 (6-26); Blood Urea Nitrogen 15 mg/dL (6-20); Calcium 8.8 mg/dL (8.6-10.3); Carbon Dioxide 26 mEq/L (23-29); Chloride 106 mEq/L (98-107); Glucose 97 mg/dL (70-105); Osmolality,Calculated 283 (280-300); Sodium 136 mEq/L (136-145); Troponin I < 0.03 ng/mL (< 0.04); eGFR For Non-African Americans > 60 (> 60)
--- NOTE | 2018-09-28 17:25 | Electrocardiograph Report ---
[place] [id number] Test Date: 2018-09-28 Pat Name: Chris Overton Department: EXAM8 Room: Gender: M Granite Installer: : 1975 Requested By: Jaswant Tapia Order Number: [id number] Reading MD: Freddy King Measurements Intervals [place] Rate: 80 P: 8 IN: 147 QRS: 61 QRSD: 91 T: 62 QT: 376 QTc: 434 Interpretive Statements Sinus rhythm Electronically Signed On 09-28-2018 17:23:40 EST by Freddy King
[2018-09-28] MEDS ORDERED: Naloxone 0.4 MG/ML INJ IVP PRN (18:09)
[2018-09-28 18:43] LABS: Bilirubin,Urine Negative (Negative); Blood,Urine Negative (Negative); Clarity,Urine Clear (Clear); Color,Urine Yellow (Yellow); Glucose,Urine (UA) Normal (Normal); Ketones,Urine Negative (Negative); Leukocyte Esterase,Urine Negative (Negative); Nitrite,Urine Negative (Negative); PH,Urine 8.5 pH Units (5.0-8.0); Protein,Urine Trace mg/dL (Neg-Trace); Specific Gravity,Urine 1.019 (1.010-1.025); Urobilinogen,Urine Normal (Normal)
[2018-09-28 18:45] LABS: Bacteria,Urine None Seen per hpf (None-Few); Hyaline Casts,Urine None Seen per lpf (None-Few); RBC,Urine 0-3 per hpf (0-3); Squamous Epithelial Cell,Urine Moderate per lpf (None-Few); WBC,Urine 0-3 per hpf (0-3)
[2018-09-28] MEDS ORDERED: Acetaminophen 325 MG TABLET PO PRN (18:55)
[2018-09-28] MEDS ORDERED: Ipratropium/Albuterol Neb 3 ML IH PRN (18:56)
--- NOTE | 2018-09-28 18:58 | Internal Med History&Physical ---
Date of Encounter: 09/28/18 Time of Encounter: 19:00 Internal Medicine - H&P: HPI Chief complaint: Weakness, lower extremity bilateral burning and warmth of 1 day duration History of present illness: Mr. Overton is a 43 year old male with pmh of morbid obesity, chronic lower extremity edema, recurrent cellulitis presenting with complaints of lower extremity warmth and burning of 1 day duration. Patient notes he has had recurrent cellulitis and these are the symptoms that precede severe redness of his lower extremities. He says he woke up with fatigue and weakness and had severe lower extremity burning in both lower extremities and came to the ER. He denies any chest pain, shortness of breath. Admits to weakness. In the ER, he had a leukocytosis of 24 and was given one dose of vancomycin. He is being admitted for further management Past Med Surg Social Fam HX - Past Medical History Medical history: diabetes, hypertension, other Additional medical history: lymph edema bilat legs, recurrent cellulitits, Psychiatric history: no psych history - Past Surgical History Additional surgical history: gastric bypass sx, open bone biopsy to right leg, - Social History Smoking Status: Current every day smoker Smokeless Tobacco Status: No Alcohol use: rarely Drug use: none Internal Medicine - H&P: Meds Albuterol Sulfate [Albuterol Inhaler] 2 puff IH Q6HR PRN #1 hfa.aer.ad 10/16/16 [Rx] Furosemide [Lasix] 40 mg PO DAILY 10/16/16 [History] Gabapentin [Neurontin] 300 mg PO TID 10/16/16 [History] Ibuprofen [Motrin] 800 mg PO TID 10/16/16 [History] Paroxetine HCl [Paxil] 20 mg PO DAILY 10/16/16 [History] Potassium Chloride [K-Tab ER] 10 meq PO DAILY 10/16/16 [History] Cholecalciferol (Vitamin D3) [Vitamin D3] 5,000 unit PO DAILY 05/20/18 [History] Ascorbic Acid [C-500] 500 mg PO DAILY #30 tablet 05/22/18 [Rx] Ferrous Sulfate 325 mg PO DAILY #30 tablet 05/22/18 [Rx] Buspirone HCl [Buspar] 10 mg PO BID 09/28/18 [History] Allergy/AdvReac Type Severity Reaction Status Date / Time No Known Allergies Allergy Verified 09/28/18 10:52 All Systems PM: A 10-system review of systems was performed and is negative for pertinent findings except as documented above in the HPI. - Constitutional Constitutional: fatigue, no chills, no fever(s), no night sweats - EENT Eyes: no change in vision, no discharge, no pain, no photophobia Ears: no ear discharge, no ear pain, no tinnitus Nose, mouth and throat: no dysphagia, no nasal discharge, no neck pain, no sore throat - Cardiovascular Cardiovascular ROS IM: no chest pain, no diaphoresis, no dyspnea, no lightheadedness, no palpitations, no syncope - Respiratory Respiratory: no cough, no dyspnea, no wheezing, no excessive phlegm production - Gastrointestinal Gastrointestinal: no abdominal pain, no diarrhea, no hematemesis, no hematochezia, no melena, no nausea, no vomiting - Musculoskeletal Musculoskeletal ROS IM: no numbness, no tingling - Integumentary Integumentary IM: no rash, no unusual bruising - Neurological Neurological ROS: no confusion, no convulsions, no focal weakness, no numbness, no tingling, no tremor(s) - Hematologic/Lymphatic Hematologic/Lymphatic: no easy bruising - Constitutional Vitals: Temp Pulse Resp BP Pulse Ox 98.9 F 84 14 133/66 98 09/28/18 18:46 09/28/18 18:46 09/28/18 18:51 09/28/18 18:51 09/28/18 18:46 Exam: Morbidly obese - Head Head exam: Present: atraumatic, normocephalic - Eye Eye exam: Present: PERRL, conjuntiva pink, sclera anicteric Pupils: Present: PERRL - Neck Neck exam general surgery: Present: supple, trachea midline. Absent: lymphadenopathy - Respiratory Respiratory exam: Present: CTAB. Absent: accessory muscle use, rales, rhonchi, wheezes - Cardiovascular Cardiovascular exam: Present: RRR, +S1, +S2. Absent: diastolic murmur, gallop, rubs, systolic murmur - GI/Abdominal GI/Abdominal exam: Present: normal bowel sounds, soft, no peritoneal signs. Absent: distended, tenderness - Extremities Exam Extremities exam: Present: tenderness, warm, radial pulses palpable and symmetrical. Absent: calf tenderness, cyanotic, pedal edema Additional comments: lower extremity burning and warmth - Neurological Exam Neurological exam: Present: CN II-XII intact, oriented X3, no focal deficits. Absent: pronater drift, facial droop, speech deficit - Skin Skin exam: Present: dry, intact Internal Med - H&P Results - Labs CBC & Chem 7: 09/28/18 12:52 09/28/18 12:52 Labs: Short CBC 09/28/18 Range/Units 12:52 WBC 24.8 H (4.3-11.1) K/mcL Hgb 13.6 (12.9-16.9) g/dL Hct 43.3 (37.5-50.1) % Plt Count 136 L (140-400) K/mcL BMP 09/28/18 12:52 Sodium 136 Potassium 4.0 Chloride 106 Carbon Dioxide 26 BUN 15 Creatinine 0.72 Glucose 97 Calcium 8.8 Cardiac Enzymes 09/28/18 Range/Units 12:52 Troponin I < 0.03 (< 0.04) ng/mL Urine 09/28/18 Range/Units 18:30 Urine Color Yellow (Yellow) Urine Clarity Clear (Clear) Urine pH 8.5 H (5.0-8.0) pH Units Ur Specific [place] 1.019 (1.010-1.025) Urine Protein Trace (Neg-Trace) mg/dL Urine Glucose (UA) Normal (Normal) mg/dL - Impressions ITS Impressions Chest X-Ray 09/28/18 12:36 IMPRESSION: No acute cardiopulmonary disease D/ / Abner Sykes MD / Abner Sykes MD Interpreting Provider: Abner Sykes MD - Assessment and plan (1) Sepsis Current Visit: Yes Status: Acute Assessment and plan: Sepsis likely secondary to recurrent cellulitis. Pt has bilateral lower ex tremity burning and warmth with leukocytosis. Obtain blood cultures, start on vanc and zosyn Qualifiers: Sepsis type: sepsis due to unspecified organism Qualified Code(s): A41.9 - Sepsis, unspecified organism (2) Cellulitis Current Visit: No Status: Acute Assessment and plan: Pt has bilateral lower extremity burning and warmth with leukocytosis. Obtain blood cultures, start on vanc and zosyn Qualifiers: Site of cellulitis: extremity Site of cellulitis of extremity: lower extremity Laterality: left Qualified Code(s): L03.116 - Cellulitis of left lower limb (3) Morbid obesity with BMI of 60.0-69.9, adult Current Visit: Yes Status: Acute Assessment and plan: Diet and exercise (4) Chronic acquired lymphedema Current Visit: Yes Status: Acute Assessment and plan: Continue lasix (5) DVT prophylaxis Current Visit: Yes Status: Acute Assessment and plan: heparin sc - Time Spent With Patient Total time spent is greater than 50% in coordination of care (as documented) at patient's floor/unit and/or counseling patient:
[2018-09-28] MEDS ORDERED: Ipratropium/Albuterol Neb 3 ML IH SCH (20:00)
[2018-09-28] MEDS: Ibuprofen 800 MG TABLET PO SCH (22:06)
[2018-09-28] MEDS: Gabapentin 300 MG CAPSULE PO SCH (22:06)
[2018-09-28] MEDS: Piperacillin/Tazobactam 3.375 GM in 0.9 % Sodium Chloride Mini Bag 100 ML IVPB SCH (22:32)
[2018-09-29] MEDS: Piperacillin/Tazobactam 3.375 GM in 0.9 % Sodium Chloride Mini Bag 100 ML IVPB SCH ×4 (02:20→23:47)
[2018-09-29 05:02] LABS: Basophils # 0.1 K/mcL (0.0-0.2); Basophils % 0.4 %; Hematocrit 41.4 % (37.5-50.1); Hemoglobin 13.1 g/dL (12.9-16.9); Immature Granulocytes % 0.8 % (0-4); Lymphocytes # 0.6 K/mcL (0.6-4.6); Lymphocytes % 2.6 %; Mean Corpuscular HGB Conc 31.6 g/dL (31.6-35.5); Mean Corpuscular Hemoglobin 28.4 pg (28.0-33.3); Mean Corpuscular Volume 89.6 fL (83.0-100.0); Mean Platelet Volume 10.9 fL (9.4-12.4); Monocytes # 0.8 K/mcL (0.0-1.3); Monocytes % 3.4 %; Platelet Count 143 K/mcL (140-400); Red Blood Count 4.62 M/mcL (4.19-5.50); Red Cell Distribution Width 14.7 % (11.5-14.5); Segmented Neutrophils % 92.8 %
[2018-09-29 05:28] LABS: BUN/Creatinine Ratio 16 (6-26); Blood Urea Nitrogen 16 mg/dL (6-20); Calcium 8.8 mg/dL (8.6-10.3); Carbon Dioxide 22 mEq/L (23-29); Chloride 105 mEq/L (98-107); Glucose 104 mg/dL (70-105); Magnesium 1.8 mg/dL (1.6-2.6); Osmolality,Calculated 283 (280-300); Phosphorous 4.1 mg/dL (2.7-4.5); Potassium 3.8 mEq/L (3.5-5.1); Sodium 136 mEq/L (136-145); eGFR For Non-African Americans > 60 (> 60)
[2018-09-29] MEDS: Furosemide 40 MG TABLET PO SCH (09:18)
[2018-09-29] MEDS: Cholecalciferol (D-3) 1,000 UNIT TABLET PO SCH (09:18)
[2018-09-29] MEDS: Gabapentin 300 MG CAPSULE PO SCH ×3 (09:18→20:21)
[2018-09-29] MEDS: Ascorbic Acid 500 MG TABLET PO SCH (09:19)
[2018-09-29] MEDS: Ibuprofen 800 MG TABLET PO SCH ×3 (09:19→20:21)
--- NOTE | 2018-09-29 10:15 | Internal Med Progress Note ---
Hospitalist Progress Note - Encounter Date of Encounter: 09/29/18 Time of Encounter: 10:15 - Subjective Interval History: Mr. Overton is a 43 year old male with pmh of morbid obesity, chronic lower extremity edema, recurrent cellulitis presenting with complaints of lower extremity warmth and burning of 1 day duration. Patient notes he has had recurrent cellulitis and these are the symptoms that precede severe redness of his lower extremities. He says he woke up with fatigue and weakness and had severe lower extremity burning in both lower extremities and came to the ER - Exam Vitals: Temp Pulse Resp BP Pulse Ox 98.0 F 73 16 115/78 97 09/29/18 07:36 09/29/18 07:36 09/29/18 07:36 09/29/18 07:36 09/29/18 10:05 Exam: Gen - Awake, alert, oriented x 3, no acute distress. Morbidly obese HEENT - NCAT, PERRLA, EOMI, hearing grossly intact, oropharynx benign CV - RRR, normal S1 and S2, no M/R/G, no BLE edema Resp - Normal WOB, CTAB, no W/R/R GI - Soft, NT/ND, no masses, normal bowel sounds, Skin - Warm, dry, no rashes/lesions/ulcers Psych - Normal mood and affect, no depression or anxiety - Assessment and Plan (1) Sepsis Current Visit: Yes Status: Acute Assessment and Plan: Sepsis likely secondary to recurrent cellulitis. Pt has bilateral lower extremity burning and warmth with leukocytosis. Obtain blood cultures, start on vanc and zosyn (2) Cellulitis Current Visit: No Status: Acute Assessment and Plan: Pt has bilateral lower extremity burning and warmth with leukocytosis. Obtain blood cultures, start on vanc and zosyn (3) Morbid obesity with BMI of 60.0-69.9, adult Current Visit: Yes Status: Acute Assessment and Plan: Diet and exercise (4) Chronic acquired lymphedema Current Visit: Yes Status: Acute Assessment and Plan: Continue lasix (5) DVT prophylaxis Current Visit: Yes Status: Acute Assessment and Plan: heparin sc - Time Spent with Patient Total time spent is greater than 50% in coordination of care (as documented) at patient's floor/unit and/or counseling patient: Internal Medicine: Result - Labs CBC & Chem 7: 09/29/18 03:32 09/29/18 03:32 Labs: Short CBC 09/28/18 09/29/18 Range/Units 12:52 03:32 WBC 24.8 H 22.6 H (4.3-11.1) K/mcL Hgb 13.6 13.1 (12.9-16.9) g/dL Hct 43.3 41.4 (37.5-50.1) % Plt Count 136 L 143 (140-400) K/mcL Neutrophils # 21.0 H (1.6-8.9) K/mcL BMP 09/28/18 09/29/18 12:52 03:32 Sodium 136 136 Potassium 4.0 3.8 Chloride 106 105 Carbon Dioxide 26 22 L BUN 15 16 Creatinine 0.72 0.97 Glucose 97 104 Calcium 8.8 8.8 Cardiac Enzymes 09/28/18 Range/Units 12:52 Troponin I < 0.03 (< 0.04) ng/mL Urine 09/28/18 Range/Units 18:30 Urine Color Yellow (Yellow) Urine Clarity Clear (Clear) Urine pH 8.5 H (5.0-8.0) pH Units Ur Specific [place] 1.019 (1.010-1.025) Urine Protein Trace (Neg-Trace) mg/dL Urine Glucose (UA) Normal (Normal) mg/dL - Impressions Impressions Chest X-Ray 09/28/18 12:36 IMPRESSION: No acute cardiopulmonary disease D/ / Abner Sykes MD / Abner Sykes MD Interpreting Provider: Abner Sykes MD Consult Discharge Plan - Plan Referrals: Forrest Lozano, DO [Primary Care Provider] - (1) Sepsis Qualifiers: Sepsis type: sepsis due to unspecified organism Qualified Code(s): A41.9 - Sepsis, unspecified organism (2) Cellulitis Qualifiers: Site of cellulitis: extremity Site of cellulitis of extremity: lower extremity Laterality: left Qualified Code(s): L03.116 - Cellulitis of left lower limb
[2018-09-30] MEDS: Ibuprofen 800 MG TABLET PO SCH ×3 (07:57→20:35)
[2018-09-30] MEDS: Ascorbic Acid 500 MG TABLET PO SCH (07:58)
[2018-09-30] MEDS: Cholecalciferol (D-3) 1,000 UNIT TABLET PO SCH (07:58)
[2018-09-30] MEDS: Piperacillin/Tazobactam 3.375 GM in 0.9 % Sodium Chloride Mini Bag 100 ML IVPB SCH ×2 (07:58→16:38)
[2018-09-30] MEDS: Furosemide 40 MG TABLET PO SCH (07:58)
[2018-09-30] MEDS: Gabapentin 300 MG CAPSULE PO SCH ×3 (07:58→20:35)
[2018-09-30 10:50] LABS: Vancomycin,Trough 8 mcg/mL (5-10)
[2018-09-30 10:53] LABS: BUN/Creatinine Ratio 19 (6-26); Blood Urea Nitrogen 16 mg/dL (6-20); Calcium 8.9 mg/dL (8.6-10.3); Carbon Dioxide 21 mEq/L (23-29); Chloride 109 mEq/L (98-107); Glucose 201 mg/dL (70-105); Osmolality,Calculated 293 (280-300); Potassium 3.7 mEq/L (3.5-5.1); Sodium 138 mEq/L (136-145); eGFR For Non-African Americans > 60 (> 60)
[2018-09-30 10:58] LABS: Basophils % 0.6 %; Eosinophils # 0.1 K/mcL (0.0-0.6); Eosinophils % 1.9 %; Hematocrit 41.1 % (37.5-50.1); Hemoglobin 12.9 g/dL (12.9-16.9); Immature Granulocytes % 0.4 % (0-4); Lymphocytes # 0.9 K/mcL (0.6-4.6); Lymphocytes % 13.3 %; Mean Corpuscular HGB Conc 31.4 g/dL (31.6-35.5); Mean Corpuscular Hemoglobin 28.1 pg (28.0-33.3); Mean Corpuscular Volume 89.5 fL (83.0-100.0); Mean Platelet Volume 10.9 fL (9.4-12.4); Monocytes # 0.5 K/mcL (0.0-1.3); Monocytes % 7.1 %; Neutrophils # 5.2 K/mcL (1.6-8.9); Platelet Count 155 K/mcL (140-400); Red Blood Count 4.59 M/mcL (4.19-5.50); Red Cell Distribution Width 14.8 % (11.5-14.5); Segmented Neutrophils % 76.7 %
--- NOTE | 2018-09-30 15:15 | Internal Med Progress Note ---
Hospitalist Progress Note - Encounter Date of Encounter: 09/30/18 Time of Encounter: 15:00 - Subjective Interval History: Mr. Overton is a 43 year old male with pmh of morbid obesity, chronic lower extremity edema, recurrent cellulitis presenting with complaints of lower extremity warmth and burning of 1 day duration. Patient notes he has had recurrent cellulitis and these are the symptoms that precede severe redness of his lower extremities. He says he woke up with fatigue and weakness and had severe lower extremity burning in both lower extremities and came to the ER - Exam Vitals: Temp Pulse Resp BP Pulse Ox 97.6 F 63 15 108/75 95 09/30/18 11:21 09/30/18 11:21 09/30/18 11:21 09/30/18 11:21 09/30/18 11:21 Exam: Gen - Awake, alert, oriented x 3, no acute distress. Morbidly obese HEENT - NCAT, PERRLA, EOMI, hearing grossly intact, oropharynx benign CV - RRR, normal S1 and S2, no M/R/G, no BLE edema Resp - Normal WOB, CTAB, no W/R/R GI - Soft, NT/ND, no masses, normal bowel sounds, Skin - Warm, dry, no rashes/lesions/ulcers Psych - Normal mood and affect, no depression or anxiety - Assessment and Plan (1) Sepsis Current Visit: Yes Status: Acute Assessment and Plan: Sepsis likely secondary to recurrent cellulitis. Pt has bilateral lower extremity burning and warmth with leukocytosis. Obtain blood cultures, start on vanc and zosyn (2) Cellulitis Current Visit: No Status: Acute Assessment and Plan: Pt has bilateral lower extremity burning and warmth with leukocytosis. Obtain blood cultures, start on vanc and zosyn (3) Morbid obesity with BMI of 60.0-69.9, adult Current Visit: Yes Status: Acute Assessment and Plan: Diet and exercise (4) Chronic acquired lymphedema Current Visit: Yes Status: Acute Assessment and Plan: Continue lasix (5) DVT prophylaxis Current Visit: Yes Status: Acute Assessment and Plan: heparin sc - Time Spent with Patient Total time spent is greater than 50% in coordination of care (as documented) at patient's floor/unit and/or counseling patient: Internal Medicine: Result - Labs CBC & Chem 7: 09/30/18 09:55 09/30/18 09:56 Labs: Short CBC 09/30/18 Range/Units 09:55 WBC 6.8 D (4.3-11.1) K/mcL Hgb 12.9 (12.9-16.9) g/dL Hct 41.1 (37.5-50.1) % Plt Count 155 (140-400) K/mcL Neutrophils # 5.2 (1.6-8.9) K/mcL BMP 09/30/18 09:56 Sodium 138 Potassium 3.7 Chloride 109 H Carbon Dioxide 21 L BUN 16 Creatinine 0.83 Glucose 201 H Calcium 8.9 Consult Discharge Plan - Plan Referrals: Forrest Lozano, DO [Primary Care Provider] - (1) Sepsis Qualifiers: Sepsis type: sepsis due to unspecified organism Qualified Code(s): A41.9 - Sepsis, unspecified organism (2) Cellulitis Qualifiers: Site of cellulitis: extremity Site of cellulitis of extremity: lower extremity Laterality: left Qualified Code(s): L03.116 - Cellulitis of left lower limb
[2018-10-01] MEDS: Piperacillin/Tazobactam 3.375 GM in 0.9 % Sodium Chloride Mini Bag 100 ML IVPB SCH ×5 (00:18→23:32)
[2018-10-01 05:24] LABS: Basophils # 0.1 K/mcL (0.0-0.2); Basophils % 0.8 %; Eosinophils # 0.1 K/mcL (0.0-0.6); Eosinophils % 2.2 %; Hematocrit 36.3 % (37.5-50.1); Hemoglobin 11.5 g/dL (12.9-16.9); Immature Granulocytes % 0.5 % (0-4); Lymphocytes # 1.3 K/mcL (0.6-4.6); Lymphocytes % 20.2 %; Mean Corpuscular HGB Conc 31.7 g/dL (31.6-35.5); Mean Corpuscular Volume 88.5 fL (83.0-100.0); Mean Platelet Volume 10.7 fL (9.4-12.4); Monocytes # 0.6 K/mcL (0.0-1.3); Monocytes % 8.7 %; Neutrophils # 4.3 K/mcL (1.6-8.9); Platelet Count 149 K/mcL (140-400); Red Cell Distribution Width 14.7 % (11.5-14.5); Segmented Neutrophils % 67.6 %
[2018-10-01 05:43] LABS: BUN/Creatinine Ratio 21 (6-26); Blood Urea Nitrogen 16 mg/dL (6-20); Calcium 8.7 mg/dL (8.6-10.3); Carbon Dioxide 24 mEq/L (23-29); Chloride 109 mEq/L (98-107); Glucose 114 mg/dL (70-105); Magnesium 1.9 mg/dL (1.6-2.6); Osmolality,Calculated 290 (280-300); Phosphorous 3.3 mg/dL (2.7-4.5); Potassium 3.7 mEq/L (3.5-5.1); Sodium 139 mEq/L (136-145); eGFR For Non-African Americans > 60 (> 60)
[2018-10-01] MEDS: Furosemide 40 MG TABLET PO SCH (08:31)
[2018-10-01] MEDS: Ibuprofen 800 MG TABLET PO SCH ×3 (08:31→20:16)
[2018-10-01] MEDS: Cholecalciferol (D-3) 1,000 UNIT TABLET PO SCH (08:31)
[2018-10-01] MEDS: Ascorbic Acid 500 MG TABLET PO SCH (08:31)
[2018-10-01] MEDS: Gabapentin 300 MG CAPSULE PO SCH ×3 (08:31→20:16)
--- NOTE | 2018-10-01 09:12 | Internal Med Progress Note ---
Hospitalist Progress Note - Encounter Date of Encounter: 10/01/18 Time of Encounter: 09:00 - Subjective Interval History: Mr. Overton is a 43 year old male with pmh of morbid obesity, chronic lower extremity edema, recurrent cellulitis presenting with complaints of lower extremity warmth and burning of 1 day duration. Patient notes he has had recurrent cellulitis and these are the symptoms that precede severe redness of his lower extremities. He says he woke up with fatigue and weakness and had severe lower extremity burning in both lower extremities and came to the ER - Exam Vitals: Temp Pulse Resp BP Pulse Ox 97.7 F 61 16 121/68 95 10/01/18 07:05 10/01/18 07:05 10/01/18 07:05 10/01/18 07:05 10/01/18 07:05 Exam: Gen - Awake, alert, oriented x 3, no acute distress. Morbidly obese HEENT - NCAT, PERRLA, EOMI, hearing grossly intact, oropharynx benign CV - RRR, normal S1 and S2, no M/R/G, no BLE edema Resp - Normal WOB, CTAB, no W/R/R GI - Soft, NT/ND, no masses, normal bowel sounds, Skin - Warm, dry, no rashes/lesions/ulcers Psych - Normal mood and affect, no depression or anxiety - Assessment and Plan (1) Sepsis Current Visit: Yes Status: Acute Assessment and Plan: Sepsis likely secondary to recurrent cellulitis. Pt has bilateral lower extremity burning and warmth with leukocytosis. Obtain blood cultures, start on vanc and zosyn Still has redness and warmth this am. Continue IV antibiotics. Will likely need follow up with ID due to recurrent cellulitis (2) Cellulitis Current Visit: Yes Status: Acute Assessment and Plan: Pt has bilateral lower extremity burning and warmth with leukocytosis. Obtain blood cultures, start on vanc and zosyn (3) Morbid obesity with BMI of 60.0-69.9, adult Current Visit: Yes Status: Acute Assessment and Plan: Diet and exercise (4) Chronic acquired lymphedema Current Visit: Yes Status: Acute Assessment and Plan: Continue lasix (5) DVT prophylaxis Current Visit: Yes Status: Acute Assessment and Plan: heparin sc - Time Spent with Patient Total time spent is greater than 50% in coordination of care (as documented) at patient's floor/unit and/or counseling patient: Internal Medicine: Result - Labs CBC & Chem 7: 10/01/18 04:30 10/01/18 04:30 Labs: Short CBC 09/30/18 10/01/18 Range/Units 09:55 04:30 WBC 6.8 D 6.3 (4.3-11.1) K/mcL Hgb 12.9 11.5 L (12.9-16.9) g/dL Hct 41.1 36.3 L (37.5-50.1) % Plt Count 155 149 (140-400) K/mcL Neutrophils # 5.2 4.3 (1.6-8.9) K/mcL BMP 09/30/18 10/01/18 09:56 04:30 Sodium 138 139 Potassium 3.7 3.7 Chloride 109 H 109 H Carbon Dioxide 21 L 24 BUN 16 16 Creatinine 0.83 0.76 Glucose 201 H 114 H Calcium 8.9 8.7 Consult Discharge Plan - Plan Referrals: Forrest Lozano, [Primary Care Provider] - (1) Sepsis Qualifiers: Sepsis type: sepsis due to unspecified organism Qualified Code(s): A41.9 - Sepsis, unspecified organism (2) Cellulitis Qualifiers: Site of cellulitis: extremity Site of cellulitis of extremity: lower extremity Laterality: left Qualified Code(s): L03.116 - Cellulitis of left lower limb
[2018-10-02 02:19] LABS: Basophils # 0.1 K/mcL (0.0-0.2); Basophils % 0.8 %; Eosinophils # 0.2 K/mcL (0.0-0.6); Eosinophils % 2.9 %; Hematocrit 38.4 % (37.5-50.1); Hemoglobin 12.2 g/dL (12.9-16.9); Immature Granulocytes % 0.6 % (0-4); Lymphocytes # 1.6 K/mcL (0.6-4.6); Lymphocytes % 24.8 %; Mean Corpuscular HGB Conc 31.8 g/dL (31.6-35.5); Mean Corpuscular Hemoglobin 27.9 pg (28.0-33.3); Mean Corpuscular Volume 87.9 fL (83.0-100.0); Mean Platelet Volume 10.7 fL (9.4-12.4); Monocytes # 0.4 K/mcL (0.0-1.3); Monocytes % 6.3 %; Neutrophils # 4.1 K/mcL (1.6-8.9); Platelet Count 177 K/mcL (140-400); Red Blood Count 4.37 M/mcL (4.19-5.50); Red Cell Distribution Width 14.6 % (11.5-14.5); Segmented Neutrophils % 64.6 %
[2018-10-02 02:31] LABS: BUN/Creatinine Ratio 22 (6-26); Blood Urea Nitrogen 17 mg/dL (6-20); Calcium 8.8 mg/dL (8.6-10.3); Carbon Dioxide 27 mEq/L (23-29); Chloride 108 mEq/L (98-107); Glucose 90 mg/dL (70-105); Magnesium 1.9 mg/dL (1.6-2.6); Osmolality,Calculated 289 (280-300); Phosphorous 3.8 mg/dL (2.7-4.5); Sodium 139 mEq/L (136-145); eGFR For Non-African Americans > 60 (> 60)
[2018-10-02 06:35] VITALS: BP 116/73
[2018-10-02] MEDS: Ibuprofen 800 MG TABLET PO SCH (07:28)
[2018-10-02] MEDS: Piperacillin/Tazobactam 3.375 GM in 0.9 % Sodium Chloride Mini Bag 100 ML IVPB SCH (07:28)
[2018-10-02] MEDS: Furosemide 40 MG TABLET PO SCH (07:29)
[2018-10-02] MEDS: Cholecalciferol (D-3) 1,000 UNIT TABLET PO SCH (07:29)
[2018-10-02] MEDS: Ascorbic Acid 500 MG TABLET PO SCH (07:29)
[2018-10-02] MEDS: Gabapentin 300 MG CAPSULE PO SCH (07:29)
--- NOTE | 2018-10-02 09:51 | Discharge Summary ---
Orders not resulted at time of discharge: Pending orders 09/28/18 18:26 Culture,Blood [BC] Stat 10/03/18 04:00 Basic Metabolic Panel AM 0400 CBC [Complete Blood Count] [HEME] AM 0400 Magnesium AM 0400 Phosphorous AM 0400 10/04/18 04:00 Basic Metabolic Panel AM 0400 CBC [Complete Blood Count] [HEME] AM 0400 Magnesium AM 0400 Phosphorous AM 0400 10/05/18 04:00 Basic Metabolic Panel AM 0400 CBC [Complete Blood Count] [HEME] AM 0400 Magnesium AM 0400 Phosphorous AM 0400 10/06/18 04:00 Basic Metabolic Panel AM 0400 CBC [Complete Blood Count] [HEME] AM 0400 Magnesium AM 0400 Phosphorous AM 0400 Date of Encounter: 10/02/18 Time of Encounter: 09:45 - Discharge Diagnosis (1) Sepsis Priority: Primary Status: Acute Assessment and Plan: 43 year old male with pmh of morbid obesity, chronic lower extremity edema, recurrent cellulitis presenting with complaints of lower extremity warmth and burning of 1 day duration. Patient notes he has had recurrent cellulitis and these are the symptoms that precede severe redness of his lower extremities. He says he woke up with fatigue and weakness and had severe lower extremity burning in both lower extremities and came to the ER. He denies any chest pain, shortness of breath. Admits to weakness. He was assessed with sepsis likely secondary to recurrent cellulitis. He came in with bilateral lower extremity burning and warmth with leukocytosis. He was started on vanc and zosyn and blood cultures were obtained. His leukocytosis improved and redness and warmth gradually resolved. He was discharged on a course of bactrim and augmentin and given a follow up with ID due to recurrent cellulitis. 35 minutes was spent discharging this patient Qualifiers: Sepsis type: sepsis due to unspecified organism Qualified Code(s): A41.9 - Sepsis, unspecified organism (2) Cellulitis Priority: Primary Status: Acute Qualifiers: Site of cellulitis: extremity Site of cellulitis of extremity: lower extremity Laterality: left Qualified Code(s): L03.116 - Cellulitis of left lower limb (3) Morbid obesity with BMI of 60.0-69.9, adult Priority: Primary Status: Acute (4) Chronic acquired lymphedema Priority: Primary Status: Acute (5) DVT prophylaxis Priority: Primary Status: Acute Hospital course: Mr. Overton is a 43 year old male - Time Spent with Patient Total time spent providing and/or coordinating discharge services: - Discharge Medications Prescriptions: Amoxicillin/Clavulanate [Augmentin] 875 mg PO BIDWM 10 Days #20 tablet Sulfamethoxazole/Trimeth DS [Bactrim DS] 1 each PO BID 10 Days #20 tablet Home Medications: Albuterol Sulfate [Albuterol Inhaler] 2 puff IH Q6HR PRN #1 hfa.aer.ad 10/16/16 [Rx] Furosemide [Lasix] 40 mg PO DAILY 10/16/16 [History] Gabapentin [Neurontin] 300 mg PO TID 10/16/16 [History] Ibuprofen [Motrin] 800 mg PO TID 10/16/16 [History] Paroxetine HCl [Paxil] 20 mg PO DAILY 10/16/16 [History] Potassium Chloride [K-Tab ER] 10 meq PO DAILY 10/16/16 [History] Cholecalciferol (Vitamin D3) [Vitamin D3] 5,000 unit PO DAILY 05/20/18 [History] Ascorbic Acid [C-500] 500 mg PO DAILY #30 tablet 05/22/18 [Rx] Ferrous Sulfate 325 mg PO DAILY #30 tablet 05/22/18 [Rx] Buspirone HCl [Buspar] 10 mg PO BID 09/28/18 [History] Amoxicillin/Clavulanate [Augmentin] 875 mg PO BIDWM 10 Days #20 tablet 10/02/18 [Rx] Sulfamethoxazole/Trimeth DS [Bactrim DS] 1 each PO BID 10 Days #20 tablet 10/02/18 [Rx] Allergies/Adverse Reactions: Allergy/AdvReac Type Severity Reaction Status Date / Time No Known Allergies Allergy Verified 09/28/18 10:52 Date of admission: 10/01/18 13:36 Primary care physician: Forrets Lzoano DO - Constitutional Vitals: Temp Pulse Resp BP Pulse Ox 97.8 F 64 18 116/73 92 10/02/18 06:35 10/02/18 06:35 10/02/18 06:35 10/02/18 06:35 10/02/18 06:35 Exam: Gen - Awake, alert, oriented x 3, no acute distress. Morbidly obese HEENT - NCAT, PERRLA, EOMI, hearing grossly intact, oropharynx benign CV - RRR, normal S1 and S2, no M/R/G, no BLE edema Resp - Normal WOB, CTAB, no W/R/R GI - Soft, NT/ND, no masses, normal bowel sounds, Skin - Warm, dry, no rashes/lesions/ulcers Psych - Normal mood and affect, no depression or anxiety - Patient Status Disposition: Home, Self-Care Condition: Good - Discharge Instructions Instructions: Sulfamethoxazole/Trimethoprim (By mouth), Amoxicillin/Clavulanate Potassium (By mouth), Amoxicillin (By mouth), Tinea Pedis (DC), Cellulitis (DC), Sepsis (DC), Anemia (GEN), Lymphedema (DC) Follow Up With: [facility] [place] [Provider Group] (Hospital follow up appointment has been requested. Office will call with date and time of appointment. ) Roland Dougherty, SAFETY COUNSELOR [Advanced Practice Nurse] - 10/09/18 10:15 am
[2018-10-02] MEDS ORDERED: Aminoglycoside Consult 1 EACH MC ONE (11:21)
== END 2018-10-02 11:22 | disposition home or self-care (01) | DRG 872 ==
LOC: EMEROOARM 10:34 → 3BNU 10:34
PROVIDERS: ADMIT Internal Medicine; ATTEND Internal Medicine